=== PATIENT | female | born 1970 ===

== ENCOUNTER 2021-03-28 09:00 | Outpatient (RCR) | payer MEDICAID, SELFPAY | END 2021-03-29 08:00 | disposition home or self-care (01) | LOC: HO.PT 09:00 | PROVIDERS: PCP Pediatrics; Visit Provider Pediatrics | DX: M54.5 Low back pain (principal); M62.830 Muscle spasm of back | CPT/HCPCS: 97110; 97112; 97116; 97140; 97162; 97530 ==

== ENCOUNTER 2023-07-27 11:30 | Outpatient (RCR) | payer OTHER, SELFPAY | END 2023-08-04 10:46 | disposition home or self-care (01) | LOC: HO.OT 11:30 | PROVIDERS: PCP Internal Medicine; Visit Provider Internal Medicine | DX: M25.522 Pain in left elbow (principal); M25.521 Pain in right elbow | CPT/HCPCS: 97110; 97140; 97165 ==

== ENCOUNTER 2023-09-03 02:15 | Emergency (ER) | payer OTHER, SELFPAY ==
[2023-09-03 02:22] VITALS: BP 118/88; BP 128/80; PULSE 80; PULSE 90; RESP 24; TEMP 36.6; O2SAT 96; O2SAT 99; BMI 33.3
[2023-09-03 02:51] LABS: MANUAL DIFF FLAG NO
[2023-09-03 02:52] LABS: Basophils Percent Auto 0.4 % (0-2); Eosinophils Absolute Auto 0.4 X10*3/uL (0.0-0.4); Eosinophils Percent Auto 6.3 % (0-4); Hematocrit 41.9 % (37.0-47.0); Hemoglobin 14.2 g/dl (12.0-16.0); Imm Gran Abs Auto 0.02 X10*3/uL (0.00-0.03); Imm Gran Pct Auto 0.3 % (0.0-0.4); Lymphocytes Percent Auto 28.6 % (20-40); Mean Corpuscular HGB Conc 33.9 g/dl (31.0-35.0); Mean Corpuscular Hemoglobin 29.2 pg (27.0-33.0); Mean Platelet Volume 9.6 fL (9.4-12.3); Monocytes Absolute Auto 0.5 X10*3/uL (0.1-1.2); Monocytes Percent Auto 7.6 % (2-11); Neutrophils Absolute Auto 3.9 x10*3/uL (2.0-8.3); Neutrophils Percent Auto 56.8 % (45-73); Platelet Count 308 X10*3/uL (160-400); Red Blood Count 4.87 X10*6/uL (4.20-5.50); Red Cell Distribution Width 12.8 % (11.0-16.0); White Blood Count 6.8 X10*3/uL (4.8-10.8)
[2023-09-03 03:23] LABS: Alanine Aminotransferase 41 U/L (0-31); Albumin Level 4.4 g/dL (3.5-5.0); Alkaline Phosphatase 126 U/L (39-117); Anion Gap 12 (12-20); Aspartate Amino Transferase 30 U/L (5-31); Bilirubin Total 0.4 mg/dL (0.0-1.0); Blood Urea Nitrogen 14 mg/dL (9-16); Calcium 9.7 mg/dL (8.4-10.2); Carbon Dioxide 27 mmol/L (22-29); Chloride 105 mmol/L (96-108); Creatinine Clr Calc Pharmacy 85.5; Estimated Glomerular Filt Rate > 60; Glucose Random 128 mg/dL (60-115); Lipase 21 U/L (8-78); Potassium 3.6 mmol/L (3.3-5.1); Sodium 140 mmol/L (135-145)
--- NOTE | 2023-09-03 03:33 | PC.NURSE ---
pt resting comfortably with eyes closed, breathing even and unlabored at this time. no apparent distress noted
--- NOTE | 2023-09-03 04:01 | ED.ABDPAIN ---
HPI - Abdominal Pain General Chief Complaint: Abdominal Pain Stated Complaint: abd pain Time Seen by Provider: 09/03/23 02:26 Source: patient Mode of arrival: EMS History of Present Illness HPI narrative: 53-year-old female who arrives via EMS with acute right flank pain that occurred when she returned home and states that she experienced some urinary frequency as well as sharp pain in her posterior right flank which prompted her to get up and pace. Patient denies any history of renal colic or intra-abdominal surgery. She denies any associated fever, chills, nausea, vomiting. Related Data Allergies Allergy/AdvReac Type Severity Reaction Status Date / Time Sulfa (Sulfonamide Allergy Unknown ITCHY Unverified 06/20/20 15:12 Antibiotics) [SULFA (SULFONAMIDE ANTIBIOTICS)] sulfacetamide Allergy Unknown Verified 11/21/19 00:00 Review of Systems Review of Systems Pertinent positives and negatives as stated in HPI PMFSH Past Medical History Source: nursing notes reviewed Social History Social History Alcohol intake: current Alcohol intake frequency: a few times a week Smoked in Last 30 Days: No Use of substances other than those prescribed or required for medical reasons: No Advance Directives: No Advance Directives Information Provided: Yes Patient : No Physical Exam ED Vital Signs: Vital Signs - 24 hr 09/03/23 02:22 Temperature 97.9 F Pulse Rate 80 Respiratory Rate 24 H Blood Pressure 128/80 Pulse Oximetry 96 Oxygen Delivery Method Room Air BMI result Body Mass Index 33.3 VITAL SIGNS: Reviewed. GENERAL: Well developed, well nourished, in no acute distress. HEAD: Normocephalic/atraumatic EYES: PERRLA, EOMI EARS: Ext canals without abnormality NOSE: Nares patent bilateral OROPHARYNX: no oral lesions noted, posterior pharynx clear NECK: Supple, no adenopathy LUNGS: Normal breath sounds. No adventitious sounds or accessory muscle use. SpO2<96> CARDIOVASCULAR: Regular rate and rhythm without noted murmurs ABDOMEN: Soft, non-tender, non-distended with bowel sounds. MUSCULOSKELETAL: No tenderness, deformities, or effusions noted on gross inspection. EXTREMITIES: No cyanosis, clubbing or edema. SKIN: Inspection of the skin reveals no rashes NEUROLOGIC: Alert and oriented x 4. Strength and sensation to light touch were grossly intact x 4. Medical Decision Making Medical Decision Making [facility] Narrative: 53-year-old female with history and clinical presentation, DDX: Renal colic, UTI, lower clinical suspicion for appendicitis/pyelonephritis or SBO. Notably, the time of my examination patient was completely asymptomatic and had been resting comfortably in the gurney. I reviewed all investigations and hematologic indices are grossly within normal limits. Chemistry indices are also grossly within normal limits, there is a mild elevation of glucose, ALT -41 with chronically stable elevation of alkaline phosphatase. Urinalysis demonstrates trace blood. Patient is currently asymptomatic, there are no laboratory derangements, I highly suspect that patient had ureterolithiasis and has subsequently passed the stone. She is otherwise hemodynamically stable and will be discharged home. Differential Diagnosis Differential Diagnoses: The differential diagnosis associated with the presentation includes Please see the discussion above Admission/Observation Consideration of admission/observation: Escalation of care including admission/observation considered Please see the discussion above Lab Data [facility] Lab Attestation statement: I reviewed the patient's lab results. Please see the discussion above 09/03/23 02:45 09/03/23 02:45 Labs: Lab Results 09/03/23 Range/Units 02:45 WBC 6.8 (4.8-10.8) X10*3/uL RBC 4.87 (4.20-5.50) X10*6/uL Hgb 14.2 (12.0-16.0) g/dl Hct 41.9 (37.0-47.0) % MCV 86.0 (80.0-98.0) fL MCH 29.2 (27.0-33.0) pg MCHC 33.9 (31.0-35.0) g/dl RDW 12.8 (11.0-16.0) % Plt Count 308 (160-400) X10*3/uL MPV 9.6 (9.4-12.3) fL Immature Gran % (Auto) 0.3 (0.0-0.4) % Neut % (Auto) 56.8 (45-73) % Lymph % (Auto) 28.6 (20-40) % [place] % (Auto) 7.6 (2-11) % Eos % (Auto) 6.3 H (0-4) % Baso % (Auto) 0.4 (0-2) % Lymph # (Auto) 2.0 (1.2-4.9) X10*3/uL [place] # (Auto) 0.5 (0.1-1.2) X10*3/uL Eos # (Auto) 0.4 (0.0-0.4) X10*3/uL Baso # (Auto) 0.0 (0.0-0.2) X10*3/uL Abs Immat Gran (auto) 0.02 (0.00-0.03) X10*3/uL Absolute Neuts (auto) 3.9 (2.0-8.3) x10*3/uL Absolute Nucleated RBC 0.000 (0.0-0.012) X10*3/uL Nucleated RBC % (auto) 0.0 (0.0-0.2) /100WBC Sodium 140 (135-145) mmol/L Potassium 3.6 (3.3-5.1) mmol/L Chloride 105 (96-108) mmol/L Carbon Dioxide 27 (22-29) mmol/L Anion Gap 12 (12-20) BUN 14 (9-16) mg/dL Creatinine 0.55 (0.5-1.4) mg/dL Estim Creat Clear Calc 85.5 Estimated GFR > 60 Random Glucose 128 H (60-115) mg/dL Calcium 9.7 (8.4-10.2) mg/dL Total Bilirubin 0.4 (0.0-1.0) mg/dL AST 30 (5-31) U/L ALT 41 H (0-31) U/L Alkaline Phosphatase 126 H (39-117) U/L Total Protein 8.0 (6.5-8.0) g/dL Albumin 4.4 (3.5-5.0) g/dL Lipase 21 (8-78) U/L Discharge Plan Discharge Clinical Impression: Flank pain Patient Disposition: Home, Self-Care Instructions: Flank Pain (ED) Additional Instructions: 1. Resume all home medications as prescribed. 2. Drink plenty of water. 3. Follow-up with primary care doctor. Return to the ER for any worsening symptoms. Referrals: Erin Suarez MD [Primary Care Provider] -
[2023-09-03 04:02] LABS: Appearance Urine Clear; Color Urine Yellow; Glucose Urine UA Negative (Negative); Leukocyte Esterase Urine Negative (Negative); Nitrite Urine Negative (Negative); UMIC TRIGGER UACC YES; Urine Blood Trace (Negative); Urine Ketones Negative (Negative); Urine Protein Negative (Neg-Trace)
[2023-09-03 04:05] LABS: Bacteria Urine None Seen (None Seen); Hyaline Casts Urine 0-2 /LPF (0-2); RBC Urine 0-2 /HPF (0-2); Squamous Epithelial Cell Urine 0-2 /HPF (0-2); WBC Urine 0-5 /HPF (0-5)
[2023-09-03 04:14] VITALS: BP 123/71; PULSE 86; RESP 16; O2SAT 95
== END 2023-09-03 04:48 | disposition home or self-care (01) ==
PROVIDERS: Emergency Provider Student in an Organized Health Care Education/Training Program; PCP Internal Medicine
DX: R10.9 Unspecified abdominal pain (principal); Z79.899 Other long term (current) drug therapy
CPT/HCPCS: 36415; 80053; 81001; 83690; 85025; 99283; 99284

== ENCOUNTER 2023-12-21 04:17 | Inpatient (IN) | payer OTHER, SELFPAY ==
[2023-12-21] VITALS (13 sets, daily range): BP systolic 124–169; BP diastolic 60–96; PULSE 61–89; RESP 16–20; TEMP 36–37.1; O2SAT 92–100; BMI 31.6; BMI 35.9
--- NOTE | ~2023-12-21 | FL_ITS ---
EXAMINATION: XR FLUOROSCOPY WITH IMAGES CLINICAL INFORMATION: Cystoscopy, ureteroscopy, retrograde and laser therapy. COMPARISON: CT abdomen and pelvis 12/21/2023. TECHNIQUE: Fluoroscopy Supervised By: Dr. Ari Soliz. Fluoroscopy Time: 20.5 seconds. Cumulative Dose: 7.46 mGy. Images: 3. FINDINGS: 3 images show contrast injected into the right ureter and renal collecting system with placement of a double-J internally dwelling ureteral stent. Please see Dr. Ari Soliz's procedure note for full details. FL/FL guidance in OR IMPRESSION: Fluoroscopy and spot films provided during retrograde pyelogram and stent placement.
--- NOTE | ~2023-12-21 | CT_ITS ---
EXAMINATION: CT ABDOMEN AND PELVIS WITHOUT CONTRAST CLINICAL INFORMATION: Right lower quadrant pain and flank pain. COMPARISON: None available. TECHNIQUE: Multidetector volumetric imaging was performed from the superior aspect of the liver through the pubic symphysis. Sagittal and coronal reformatted images were obtained on the technologist's workstation. This CT examination was performed using dose optimization techniques as appropriate, variously including the following: *Automated exposure control *Adjustment of mA and/or kV according to patient size (this includes techniques or standardized protocols for targeted exams where dose is matched to indication/reason for exam; i.e. extremities or head) *Use of iterative reconstruction technique DLP: 495 mGy-cm FINDINGS: LUNG BASES: There is bibasilar an lingular atelectasis. Heart size is normal. LIVER, GALLBLADDER, AND BILIARY TREE: The liver is normal in size, shape, and attenuation. No focal hepatic lesion or biliary ductal dilatation is present. The gallbladder is unremarkable with no evidence of radiopaque gallstones, gallbladder wall thickening, or obvious pericholecystic inflammatory changes. PANCREAS: Unremarkable. SPLEEN: Unremarkable. ADRENAL GLANDS: Unremarkable. KIDNEYS AND URETERS: There is a 3 mm obstructive right distal ureter radiopaque calculi resulting in mild to moderate hydroureteronephrosis. The right kidney is enlarged with moderate perinephric stranding. No radiopaque calculi seen in either kidneys. There is no radiopaque calculi left kidney. . There is moderate right perinephric stranding. BLADDER: Unremarkable. GASTROINTESTINAL TRACT: There is scattered stool and gas seen throughout the colon without significant distention. Is nonspecific intramural fat in the descending colon and terminal ileum but no pericolic fat stranding, a nonspecific finding. No mesenteric fat stranding, free fluid or free air seen. Appendix is not visualized. ABDOMINAL WALL: A small umbilical hernia containing fat is noted. LYMPH NODES: Normal. VASCULAR: Unremarkable. PELVIC VISCERA: The uterus is anteverted with of bulky fundus. No adnexal mass or free fluid seen. OSSEOUS STRUCTURES: There are degenerative disc changes throughout lower dorsal and lumbar spine. There is a left hip prosthesis and a chronic deformity of the right hip joint which appears fused. CT/CT abdomen pelvis wo IV con IMPRESSION: 1. 3 mm obstructive right distal ureter radiopaque calculi with mild to moderate hydroureteronephrosis and perinephric stranding. 2. There is no radiopaque calculi in the left kidney. 3. Mild constipation. Nonspecific intramural fat in the descending colon and terminal ileum but no pericolic fat stranding. Appendix is not seen. Fleischner guidelines were followed.
--- NOTE | ~2023-12-21 | CT_ITS ---
EXAMINATION: CT CHEST WITHOUT CONTRAST CLINICAL INFORMATION: Abnormal chest x-ray COMPARISON: Chest radiograph from 12/22/2023, CT abdomen from 12/21/2023 TECHNIQUE: Multidetector volumetric CT imaging of the chest was done. Axial MIP volume rendering provided. Sagittal and coronal reformatted images were obtained. This CT examination was performed using dose optimization techniques as appropriate, variously including the following: *Automated exposure control *Adjustment of mA and/or kV according to patient size (this includes techniques or standardized protocols for targeted exams where dose is matched to indication/reason for exam; i.e. extremities or head) *Use of iterative reconstruction technique DLP: 115 mGy-cm FINDINGS: LUNGS/PLEURA: Small bilateral pleural effusions with subjacent atelectasis. Interlobular septal thickening with mosaic attenuation suggesting pulmonary edema though atypical infectious/inflammatory etiology not excluded. Biapical pleural parenchymal scarring. Mild thickening along the right minor fissure. 3 mm nodular focus posterior lateral aspect of the right middle lobe (series 6, image 291). MEDIASTINUM: Heart is borderline enlarged. No pericardial effusion. No coronary artery calcifications. Previously identified density in the right paratracheal region likely corresponds to summation artifact from mediastinal vasculature vasculature. Aorta is nonaneurysmal. Main pulmonary artery is not enlarged. A few mildly prominent though nonenlarged mediastinal lymph nodes are visualized. Visualized portions of the thyroid are unremarkable. AXILLA: No lymphadenopathy. UPPER ABDOMEN: Unremarkable. OSSEOUS STRUCTURES: Multilevel degenerative changes of the thoracolumbar spine. CT/CT chest wo IV con IMPRESSION: 1. Small bilateral pleural effusions with subjacent atelectasis. 2. Interlobular septal thickening with mosaic attenuation suggesting pulmonary edema though atypical infectious/inflammatory etiology not excluded. 3. 3 mm nodular focus posterior lateral aspect of the right middle lobe. Follow-up as per Fleischner criteria. 4. Previously identified density in the right paratracheal region likely corresponds to summation artifact from mediastinal vasculature. Various management parameters for solitary pulmonary nodules are in the literature. According to the Fleischner Society, recommendations for pulmonary nodules are as follows: According to the UPDATED 2017 Fleischner Society recommendations, the advised follow-up imaging for solid nodules < 6 mm is: LOW RISK PATIENT: No routine follow-up.
--- NOTE | ~2023-12-21 | XR_ITS ---
EXAMINATION: XR CHEST CLINICAL INFORMATION: Shortness of breath COMPARISON: None available. TECHNIQUE: Frontal view of the chest was obtained. FINDINGS: Reticular and interstitial prominence. Bibasilar atelectasis. Radiodensity along the right distal trachea with fissural thickening nonspecific but potentially representing a loculated pleural effusion versus focus of infectious/inflammatory etiology. Prominence of pulmonary vasculature. No pneumothorax. Trachea is midline. Cardiac mediastinal silhouette is not enlarged. No large pleural effusion. Levocurvature of the mid to lower thoracic spine with multilevel degenerative changes. Soft tissues are unremarkable. XR/XR chest 1V IMPRESSION: 1. Reticular and interstitial prominence. 2. Bibasilar atelectasis. 3. Radiodensity along the right distal trachea with fissural thickening nonspecific but potentially representing a loculated pleural effusion versus focus of infectious/inflammatory etiology. 4. Prominence of pulmonary vasculature.
[2023-12-21 04:49] LABS: Basophils Percent Auto 0.3 % (0-2); Eosinophils Absolute Auto 0.2 X10*3/uL (0.0-0.4); Eosinophils Percent Auto 1.4 % (0-4); Hemoglobin 13.6 g/dl (12.0-16.0); Imm Gran Abs Auto 0.03 X10*3/uL (0.00-0.03); Imm Gran Pct Auto 0.3 % (0.0-0.4); Lymphocytes Absolute Auto 1.3 X10*3/uL (1.2-4.9); Lymphocytes Percent Auto 10.9 % (20-40); MANUAL DIFF FLAG NO; Mean Corpuscular Hemoglobin 28.7 pg (27.0-33.0); Mean Corpuscular Volume 84.4 fL (80.0-98.0); Mean Platelet Volume 9.2 fL (9.4-12.3); Monocytes Absolute Auto 0.6 X10*3/uL (0.1-1.2); Monocytes Percent Auto 5.4 % (2-11); Neutrophils Absolute Auto 9.7 x10*3/uL (2.0-8.3); Neutrophils Percent Auto 81.7 % (45-73); Platelet Count 277 X10*3/uL (160-400); Red Blood Count 4.74 X10*6/uL (4.20-5.50); Red Cell Distribution Width 12.4 % (11.0-16.0); White Blood Count 11.8 X10*3/uL (4.8-10.8)
[2023-12-21 05:06] LABS: Alanine Aminotransferase 26 U/L (0-31); Albumin Level 4.3 g/dL (3.5-5.0); Alkaline Phosphatase 118 U/L (39-117); Anion Gap 14 (12-20); Aspartate Amino Transferase 18 U/L (5-31); Bilirubin Direct 0.2 mg/dL (0.0-0.5); Bilirubin Total 0.7 mg/dL (0.0-1.0); Blood Urea Nitrogen 20 mg/dL (9-16); Calcium 9.6 mg/dL (8.4-10.2); Carbon Dioxide 25 mmol/L (22-29); Chloride 106 mmol/L (96-108); Creatinine Clr Calc Pharmacy 73.9; Estimated Glomerular Filt Rate > 60; Glucose Random 137 mg/dL (60-115); Lipase 15 U/L (8-78); Potassium 3.8 mmol/L (3.3-5.1); Sodium 141 mmol/L (135-145); Total Protein 7.5 g/dL (6.5-8.0)
[2023-12-21 05:17] LABS: Appearance Urine Clear; Color Urine Yellow; Glucose Urine UA Negative (Negative); Leukocyte Esterase Urine Trace (Negative); Nitrite Urine Negative (Negative); Specific Gravity - Urine 1.025 (1.005-1.025); UMIC TRIGGER UACC YES; Urine Blood Large (3+) (Negative); Urine Ketones Trace mg/dL (Negative); Urine Protein Negative (Neg-Trace)
[2023-12-21 05:22] LABS: Bacteria Urine None Seen (None Seen); Hyaline Casts Urine 0-2 /LPF (0-2); RBC Urine >20 /HPF (0-2); UACC Culture Trigger YES
--- NOTE | 2023-12-21 06:46 | ED.ABDPAIN ---
HPI - Abdominal Pain General Chief Complaint: Abdominal Pain Stated Complaint: ABDOMINAL PAIN Time Seen by Provider: 12/21/23 06:44 Source: patient and EMS Mode of arrival: EMS Limitations: no limitations History of Present Illness HPI narrative: This is a 53-year-old female presenting by ambulance with worsening right-sided flank pain with radiation to right lower quadrant, this pain started yesterday night around 23:30. Has not been improving instead has been worsening. Patient has never had pain like this before. She reports this has happened to her before, they told her that this could have been a kidney stone however unclear.. Reports that her urinary habits have been slightly different, she has been peeing less than usual and peeing small amounts when she is able to be. Denies chance of . Reports associated nausea & vomiting. Patient denies chest pain, shortness breath, headache, vision changes, dizziness, weakness, fevers, chills, changes in bowel habits Related Data Allergies Allergy/AdvReac Type Severity Reaction Status Date / Time Sulfa (Sulfonamide Allergy Unknown ITCHY Verified 12/21/23 04:34 Antibiotics) [SULFA (SULFONAMIDE ANTIBIOTICS)] sulfacetamide Allergy Unknown Unknown Verified 12/21/23 04:34 Review of Systems Review of Systems Yes all other systems are reviewed and are negative [facility] Past Medical History Attestation statement: The following information was validated with the patient. Source: old records reviewed and nursing notes reviewed Social History Social History Alcohol intake: current Alcohol intake frequency: a few times a week Advance Directives: Yes Advance Directives Information Provided: Yes Advance Directives on File: No Physical Exam ED Vital Signs: Vital Signs - 24 hr 12/21/23 04:30 12/21/23 06:00 12/21/23 08:19 Temperature 98.3 F 98.3 F 98.7 F Pulse Rate 89 78 88 Respiratory Rate 17 16 20 Blood Pressure 162/73 H 145/63 H 130/63 Pulse Oximetry 98 98 95 Oxygen Delivery Method Room Air Room Air Room Air 12/21/23 10:09 Temperature 98.3 F Pulse Rate 81 Respiratory Rate 20 Blood Pressure 131/71 Pulse Oximetry 96 Oxygen Delivery Method Room Air BMI result Body Mass Index 31.6 vss Appearance: Alert.? Oriented X3.? Patient appears uncomfortable Head: Normocephalic, atraumatic, no step-offs or deformities Eyes: Pupils equal, round and reactive to light.? Neck: Normal inspection.? Neck supple.? CVS: Normal heart rate and rhythm.? Pulses normal.? Respiratory: No respiratory distress.? Breath sounds normal.? Abdomen: Soft and mild discomfort to right lower quadrant..? Skin: Skin warm and dry.? Normal skin color.? Normal skin turgor.? Extremities: No lower extremity edema.? No calf ttp. 5/5 strength to bilateral upper and lower extremities Back: Mild discomfort to right flank region. Neuro: Oriented X 3.? No motor deficit.? No sensory deficit. CN 2-12 intact Course Reevaluation(s) Reevaluation #1: CBC with leukocytosis 11.8 and slight left shift, chemistry unremarkable. Normal lipase. UA with blood. No bacteria. CT scan showing a 3 mm obstructive stone in the right distal ureter with associated hydroureter nephrosis and perinephric stranding. Mild constipation also noted. Patient much more comfortable periods fluids given. Reached out to urology. Ceftriaxone ordered. At this time infection suspected however not sepsis Time: 09:51 Reevaluation #2: Discuss this case with Urology that is requesting for me to find out last time patient 8, patient last ate sometime last night. She still very uncomfortable. Morphine ordered Time: 10:22 Reevaluation #3: Patient will go to the OR for stent Attempted to call patients son a few times no answer left VM X1. Dr. Lei in room now Time: 11:15 Additional Reevaluation(s): Patient will be admitted to the hospitalist service per request of Urology. Patient will get a stent. Antibiotics ordered and hanging. Normal lactic acid. Will continue to monitor. Medical Decision Making Medical Decision Making [facility] Narrative: 1846 53 year old female presents w/ R flank pain w/ radiation to RLQ started around 1130 pm last night PE mild rlq ttp and r flank discomfort patient appears uncomfortable Hx and pe concerning for obstructing uropathy versus kidney stone versus appendicitis versus musculoskeletal pain. Unlikely cholecystitis, cholangitis, pancreatitis, obstruction, diverticulitis, acute abdomen. Unlikely ovarian torsion, ruptured ovarian cyst, ectopic . Plan at this time labs, urine, imaging Differential Diagnosis Differential Diagnoses: The differential diagnosis associated with the presentation includes Hx and pe concerning for obstructing uropathy versus kidney stone versus appendicitis versus musculoskeletal pain. Unlikely cholecystitis, cholangitis, pancreatitis, obstruction, diverticulitis, acute abdomen. Unlikely ovarian torsion, ruptured ovarian cyst, ectopic . Admission/Observation Consideration of admission/observation: Escalation of care including admission/observation considered Possible Consult Healthcare Provider Management of the patient was discussed with: Center Receptionist (Urology ) Lab Data MDM Lab Attestation statement: I reviewed the patient's lab results. 12/21/23 04:45 12/21/23 04:45 Labs: Lab Results 12/21/23 12/21/23 12/21/23 Range/Units 04:45 05:11 10:30 WBC 11.8 H (4.8-10.8) X10*3/uL RBC 4.74 (4.20-5.50) X10*6/uL Hgb 13.6 (12.0-16.0) g/dl Hct 40.0 (37.0-47.0) % MCV 84.4 (80.0-98.0) fL MCH 28.7 (27.0-33.0) pg MCHC 34.0 (31.0-35.0) g/dl RDW 12.4 (11.0-16.0) % Plt Count 277 (160-400) X10*3/uL MPV 9.2 L (9.4-12.3) fL Immature Gran % (Auto) 0.3 (0.0-0.4) % Neut % (Auto) 81.7 H (45-73) % Lymph % (Auto) 10.9 L (20-40) % [place] % (Auto) 5.4 (2-11) % Eos % (Auto) 1.4 (0-4) % Baso % (Auto) 0.3 (0-2) % Lymph # (Auto) 1.3 (1.2-4.9) X10*3/uL [place] # (Auto) 0.6 (0.1-1.2) X10*3/uL Eos # (Auto) 0.2 (0.0-0.4) X10*3/uL Baso # (Auto) 0.0 (0.0-0.2) X10*3/uL Abs Immat Gran (auto) 0.03 (0.00-0.03) X10*3/uL Absolute Neuts (auto) 9.7 H (2.0-8.3) x10*3/uL Absolute Nucleated RBC 0.000 (0.0-0.012) X10*3/uL Nucleated RBC % (auto) 0.0 (0.0-0.2) /100WBC Sodium 141 (135-145) mmol/L Potassium 3.8 (3.3-5.1) mmol/L Chloride 106 (96-108) mmol/L Carbon Dioxide 25 (22-29) mmol/L Anion Gap 14 (12-20) BUN 20 H (9-16) mg/dL Creatinine 0.65 (0.5-1.4) mg/dL Estim Creat Clear Calc 73.9 Estimated GFR > 60 Random Glucose 137 H (60-115) mg/dL Lactic Acid 0.9 (0.5-2.0) mmol/L Calcium 9.6 (8.4-10.2) mg/dL Total Bilirubin 0.7 (0.0-1.0) mg/dL Direct Bilirubin 0.2 (0.0-0.5) mg/dL AST 18 (5-31) U/L ALT 26 (0-31) U/L Alkaline Phosphatase 118 H (39-117) U/L Total Protein 7.5 (6.5-8.0) g/dL Albumin 4.3 (3.5-5.0) g/dL Lipase 15 (8-78) U/L Urine Color Yellow Urine Appearance Clear Urine pH 6.0 (5.0-9.0) Ur Specific [place] 1.025 (1.005-1.025) Urine Protein Negative (Neg-Trace) mg/dL Urine Glucose (UA) Negative (Negative) mg/dL Urine Ketones Trace (Negative) mg/dL Urine Blood Large (3+) H (Negative) Urine Nitrite Negative (Negative) Ur Leukocyte Esterase Trace H (Negative) Urine RBC >20 H (0-2) /HPF Urine WBC 6-10 H (0-5) /HPF Ur Squamous Epith Cells 3-5 (0-2) /HPF Urine Bacteria None Seen (None Seen) Hyaline Casts 0-2 (0-2) /LPF Independent Interpretation I performed an independent interpretation of an: CT Scan Radiology Impression Discussion of test interpretation with radiology: I have reviewed the radiologist's reading. (CT/CT abdomen pelvis wo IV con IMPRESSION: 1. 3 mm obstructive right distal ureter radiopaque calculi with mild to moderate hydroureteronephrosis and perinephric stranding. 2. There is no radiopaque calculi in the left kidney. 3. Mild constipation. Nonspecific intramural fat in the descending col) External Record Review External record reviewed: Inpatient record, Office record, Outpatient record, Prior outpatient labs, Prior outpatient radiology, Primary care record and Outside ED record Prescription Management I considered prescription management with: Antibiotic (1G ceftriaxone given here ) Chronic Conditions Patient?s care impacted by: Other (obesity ) Medications Administered Discontinued Medications Generic Name Dose Route Start Last Admin Trade Name Freq PRN Reason Stop Dose Admin Sodium Chloride 1,000 mls @ 999 mls/hr 12/21/23 07:00 12/21/23 10:13 Ns IV 12/21/23 08:00 Infused .Q1H1M ERENDIRA Infusion Sodium Chloride 1,000 mls @ 999 mls/hr 12/21/23 07:00 12/21/23 10:13 Ns IV 12/21/23 08:00 Infused .Q1H1M ERENDIRA Infusion Sodium Chloride 1,000 mls @ 999 mls/hr 12/21/23 10:00 12/21/23 10:42 Ns IV 12/21/23 11:00 999 mls/hr .Q1H1M ERENDIRA Administration Ceftriaxone Sodium 1 gm/ 50 mls @ 100 mls/hr 12/21/23 09:51 12/21/23 11:26 Sodium Chloride IV 12/21/23 10:20 Infused ONCE ONE Infusion Ketorolac Tromethamine 30 mg 12/21/23 06:48 12/21/23 07:37 Ketorolac Tromethamine 15 Mg/Ml Vial IVPUSH 12/21/23 06:49 30 mg ONCE ONE Administration Morphine Sulfate 4 mg 12/21/23 10:22 12/21/23 10:43 Morphine Sulfate 4 Mg/Ml Cartridge IVPUSH 12/21/23 10:23 4 mg ONCE ONE Administration Protocol Critical Care Time Critical Care Time Critical Care Time: Yes Total Critical Care Time: 35 Attestation: I attest to this time spent taking care of the patient, obtaining history, physical, reviewing labs, imaging, speaking to my attending, speaking to specialist. Discharge Plan Discharge Clinical Impression: Obstructed, uropathy, Urinary hesitancy, Kidney stone, Nausea & vomiting, Hydronephrosis Patient Disposition: Admitted As Inpatient
[2023-12-21] MEDS: 0.9 % Sodium Chloride 1,000 ML 999 ML IV ×3 (07:35→10:42)
[2023-12-21] MEDS: Ketorolac Tromethamine 15 MG/ML VIAL 30 MG IVPUSH (07:37)
[2023-12-21] MEDS: cefTRIAXone sodium 1 GM in 0.9 % Sodium Chloride 50 ML IV (10:42)
[2023-12-21] MEDS: Morphine Sulfate 4 MG/ML CARTRIDGE IVPUSH (10:43)
[2023-12-21 10:50] LABS: Lactic Acid 0.9 mmol/L (0.5-2.0)
--- NOTE | 2023-12-21 11:29 | PM.UROCN ---
History of Present Illness Consult details Consult date: 12/21/23 Narrative: 53-year-old female presenting with worsening right-sided flank pain with radiation to right lower quadrant, which started one day ago. Reports that her urinary habits have been slightly different, reduced urination. Reports associated nausea & vomiting. Patient denies chest pain, shortness breath, headache, vision changes, dizziness, weakness, fevers, chills, changes in bowel habits Review of Systems Review of Systems: Yes all other systems are reviewed and are negative Constitutional: Constitutional: Reports no additional constitutional complaints Eyes: Eyes: Reports no additional eye complaints ENT: Reports system reviewed and no additional complaints, except as documented Cardiovascular: Cardiovascular: Denies dyspnea Respiratory: Respiratory: Denies cough and Denies dyspnea Gastrointestinal: Gastrointestinal: Reports no additional gastrointestinal complaints Genitourinary: Genitourinary: Reports no additional female genitourinary complaints Musculoskeletal: Musculoskeletal: Reports no additional musculoskeletal complaints Integumentary/Breasts: Skin/Breast: Denies rash and Denies unusual bruising Neurologic: Reports system reviewed and no additional complaints, except as documented Psychiatric: Psychiatric: Reports no additional psychiatric complaints Endocrine: Endocrine: Reports no additional endocrine complaints Hematologic/Lymphatic: Hematologic/Lymphatic: Reports no additional hematologic/lymphatic complaints Allergic/Immunologic: Allergic/Immunologic: Reports no additional allergic/immunologic complaints [facility] Social History Social History Alcohol intake: current Alcohol intake frequency: a few times a week Advance Directives: Yes Advance Directives Information Provided: Yes Advance Directives on File: No Meds Allergies Allergy/AdvReac Type Severity Reaction Status Date / Time Sulfa (Sulfonamide Allergy Unknown ITCHY Verified 12/21/23 04:34 Antibiotics) [SULFA (SULFONAMIDE ANTIBIOTICS)] sulfacetamide Allergy Unknown Unknown Verified 12/21/23 04:34 Active Medications: Current Medications Sodium Chloride (Ns) 1,000 mls @ 999 mls/hr IV .Q1H1M ERENDIRA Stop: 12/21/23 12:00 Gentamicin Sulfate 160 mg/ (Sodium Chloride) 104 mls @ 100 mls/hr IV ONCE ONE Stop: 12/21/23 12:18 Physical Exam Vital Signs: Vital Signs: Last Vital Signs Temp 98.3 F 12/21/23 10:09 Pulse 81 12/21/23 10:09 Resp 20 12/21/23 10:09 BP 131/71 12/21/23 10:09 Pulse Ox 96 12/21/23 10:09 O2 Del Method Room Air 12/21/23 10:09 BMI result Body Mass Index 31.6 Const: General: cooperative, healthy appearing and no acute distress Orientation/consciousness: patient oriented x3 HEENT: Head: Yes normal to inspection, Yes normocephalic and Yes atraumatic Eyes: Conjunctivae: conjunctivae normal Neck: Neck: Yes normal visual inspection and Yes trachea midline Chest: Chest palpation & inspection: normal inspection of the chest Resp: Effort & Inspection: normal respiratory effort Cardio: Rate: regular rate GI: Inspection: Yes normal to inspection Palpation (GI): Soft to palpation : General: Yes CVA tenderness (right) Back/Spine/Pelvis: Back: CVA tenderness (right) Skin: General skin exam: no rashes or lesions noted Neuro: General: patient oriented x3 Extrem: General: No edema Psych: Appearance: grossly normal Results Labs 12/21/23 04:45 12/21/23 04:45 Labs: Abnormal lab results 12/21/23 12/21/23 Range/Units 04:45 05:11 WBC 11.8 H (4.8-10.8) X10*3/uL MPV 9.2 L (9.4-12.3) fL Neut % (Auto) 81.7 H (45-73) % Lymph % (Auto) 10.9 L (20-40) % Absolute Neuts (auto) 9.7 H (2.0-8.3) x10*3/uL BUN 20 H (9-16) mg/dL Random Glucose 137 H (60-115) mg/dL Alkaline Phosphatase 118 H (39-117) U/L Urine Blood Large (3+) H (Negative) Ur Leukocyte Esterase Trace H (Negative) Urine RBC >20 H (0-2) /HPF Urine WBC 6-10 H (0-5) /HPF Short CBC 12/21/23 Range/Units 04:45 WBC 11.8 H (4.8-10.8) X10*3/uL Hgb 13.6 (12.0-16.0) g/dl Hct 40.0 (37.0-47.0) % Plt Count 277 (160-400) X10*3/uL BMP 12/21/23 04:45 Sodium 141 Potassium 3.8 Chloride 106 Carbon Dioxide 25 BUN 20 H Creatinine 0.65 Calcium 9.6 Liver Function 12/21/23 Range/Units 04:45 Total Bilirubin 0.7 (0.0-1.0) mg/dL Direct Bilirubin 0.2 (0.0-0.5) mg/dL AST 18 (5-31) U/L ALT 26 (0-31) U/L Alkaline Phosphatase 118 H (39-117) U/L Albumin 4.3 (3.5-5.0) g/dL Urine 12/21/23 Range/Units 05:11 Urine Color Yellow Urine Appearance Clear Urine pH 6.0 (5.0-9.0) Ur Specific [place] 1.025 (1.005-1.025) Urine Protein Negative (Neg-Trace) mg/dL Urine Glucose (UA) Negative (Negative) mg/dL All other labs normal. Imaging Abdomen CT scan report/results: report reviewed and image reviewed CT scan - pelvis: report reviewed and image reviewed Additional studies: Date of Service: 12/21/23 EXAMINATION: CT ABDOMEN AND PELVIS WITHOUT CONTRAST CLINICAL INFORMATION: Right lower quadrant pain and flank pain. COMPARISON: None available. TECHNIQUE: Multidetector volumetric imaging was performed from the superior aspect of the liver through the pubic symphysis. Sagittal and coronal reformatted images were obtained on the technologist's workstation. This CT examination was performed using dose optimization techniques as appropriate, variously including the following: *Automated exposure control *Adjustment of mA and/or kV according to patient size (this includes techniques or standardized protocols for targeted exams where dose is matched to indication/reason for exam; i.e. extremities or head) *Use of iterative reconstruction technique DLP: 495 mGy-cm FINDINGS: LUNG BASES: There is bibasilar an lingular atelectasis. Heart size is normal. LIVER, GALLBLADDER, AND BILIARY TREE: The liver is normal in size, shape, and attenuation. No focal hepatic lesion or biliary ductal dilatation is present. The gallbladder is unremarkable with no evidence of radiopaque gallstones, gallbladder wall thickening, or obvious pericholecystic inflammatory changes. PANCREAS: Unremarkable. SPLEEN: Unremarkable. ADRENAL GLANDS: Unremarkable. KIDNEYS AND URETERS: There is a 3 mm obstructive right distal ureter radiopaque calculi resulting in mild to moderate hydroureteronephrosis. The right kidney is enlarged with moderate perinephric stranding. No radiopaque calculi seen in either kidneys. There is no radiopaque calculi left kidney. . There is moderate right perinephric stranding. BLADDER: Unremarkable. GASTROINTESTINAL TRACT: There is scattered stool and gas seen throughout the colon without significant distention. Is nonspecific intramural fat in the descending colon and terminal ileum but no pericolic fat stranding, a nonspecific finding. No mesenteric fat stranding, free fluid or free air seen. Appendix is not visualized. ABDOMINAL WALL: A small umbilical hernia containing fat is noted. LYMPH NODES: Normal. VASCULAR: Unremarkable. PELVIC VISCERA: The uterus is anteverted with of bulky fundus. No adnexal mass or free fluid seen. OSSEOUS STRUCTURES: There are degenerative disc changes throughout lower dorsal and lumbar spine. There is a left hip prosthesis and a chronic deformity of the right hip joint which appears fused. IMPRESSION: 1. 3 mm obstructive right distal ureter radiopaque calculi with mild to moderate hydroureteronephrosis and perinephric stranding. 2. There is no radiopaque calculi in the left kidney. 3. Mild constipation. Nonspecific intramural fat in the descending colon and terminal ileum but no pericolic fat stranding. Appendix is not seen. Assessment and Plan (1) Hydronephrosis: Status: Acute (2) Ureteral stone: Status: Acute (3) UTI (urinary tract infection): Status: Acute Plan Cystoscopy, right ureteral stent, retrograde, possible ureteroscopy, laser stone. Procedures Date of Service Date of Service: 12/21/23
--- NOTE | 2023-12-21 12:56 | P.CONAN_ITS ---
HPI - Anesthesia Eval Consult details Narrative: for cysto stent PMFSH Active Problems Active Problems: All Active Problems (Updated 12/21/23 @ 12:54 by Pita Salcido RN) Hydronephrosis (Acute) UTI (urinary tract infection) (Acute) Ureteral stone (Acute) Hydronephrosis (Acute) Nausea & vomiting (Acute) Kidney stone (Acute) Urinary hesitancy (Acute) Obstructed, uropathy (Acute) Past Medical History Medical History Menopause Family History Family history of problems with anesthesia: No Surgical History Surgical History History of total bilateral knee replacement Hx of section Hx of colonoscopy History of total left hip replacement History of Problems with Anesthesia: No Social History Social History Alcohol intake: current Alcohol intake frequency: a few times a week Patient Tobacco Use Status: Never used Tobacco Smoked in Last 30 Days: No Use of substances other than those prescribed or required for medical reasons: No Are you DNR?: No Advance Directives: Yes Advance Directives Information Provided: No Advance Directives on File: No Advance Directives Date on File: 12/21/23 Nutrition Risks: No Nutritional Risk Meds Allergies Allergy/AdvReac Type Severity Reaction Status Date / Time Sulfa (Sulfonamide Allergy Unknown ITCHY Verified 12/21/23 12:46 Antibiotics) [SULFA (SULFONAMIDE ANTIBIOTICS)] sulfacetamide Allergy Unknown Unknown Verified 12/21/23 12:46 Active Medications: Current Medications Gentamicin Sulfate 160 mg/ (Sodium Chloride) 104 mls @ 100 mls/hr IV ONCE ONE Stop: 12/21/23 13:02 Home Medications Medication Instructions Recorded Confirmed Last Taken Type acetaminophen 650 mg 1,300 mg PO Q12H PRN Pain (Scale 12/21/23 12/21/23 Unknown History tablet,extended release Score 1-3) cholecalciferol (vitamin D3) 50 50 mcg PO DAILY 12/21/23 12/21/23 Unknown History mcg (2,000 unit) tablet (Vitamin D3) meloxicam 15 mg tablet 15 mg PO DAILY PRN Moderate Pain 03/19/24 03/19/24 Unknown History (Scale Score 5-6) Exam Height,Weight and Vital Signs: Height 4 ft 8 in Weight 63.9 kg Last Vital Signs Temp 98.4 F 12/21/23 12:11 Pulse 84 12/21/23 12:11 Resp 20 12/21/23 12:11 BP 135/77 12/21/23 12:11 Pulse Ox 96 12/21/23 12:11 O2 Del Method Room Air 12/21/23 12:11 Pertinent Lab Results Pertinent Lab Results: Laboratory Tests 12/21/23 12/21/23 12/21/23 04:45 05:11 10:30 WBC 11.8 H RBC 4.74 Hgb 13.6 Hct 40.0 MCV 84.4 MCH 28.7 MCHC 34.0 RDW 12.4 Plt Count 277 MPV 9.2 L Immature Gran % (Auto) 0.3 Neut % (Auto) 81.7 H Lymph % (Auto) 10.9 L [place] % (Auto) 5.4 Eos % (Auto) 1.4 Baso % (Auto) 0.3 Lymph # (Auto) 1.3 [place] # (Auto) 0.6 Eos # (Auto) 0.2 Baso # (Auto) 0.0 Abs Immat Gran (auto) 0.03 Absolute Neuts (auto) 9.7 H Absolute Nucleated RBC 0.000 Nucleated RBC % (auto) 0.0 Sodium 141 Potassium 3.8 Chloride 106 Carbon Dioxide 25 Anion Gap 14 BUN 20 H Creatinine 0.65 Estim Creat Clear Calc 73.9 Estimated GFR > 60 Random Glucose 137 H Lactic Acid 0.9 Calcium 9.6 Total Bilirubin 0.7 Direct Bilirubin 0.2 AST 18 ALT 26 Alkaline Phosphatase 118 H Total Protein 7.5 Albumin 4.3 Lipase 15 Urine Color Yellow Urine Appearance Clear Urine pH 6.0 Ur Specific [place] 1.025 Urine Protein Negative Urine Glucose (UA) Negative Urine Ketones Trace Urine Blood Large (3+) H Urine Nitrite Negative Ur Leukocyte Esterase Trace H Urine RBC >20 H Urine WBC 6-10 H Ur Squamous Epith Cells 3-5 Urine Bacteria None Seen Hyaline Casts 0-2 Airway Mallampati Class: II TM Dist: >3cm Neck ROM: Full Heart: rrr Lungs: cta Assessment and Plan Assessment Anesthesia Assessment: Anesthesia Plan Discussed and Chart Reviewed Final Anesthetic Review Family History of Problems with Anesthesia: No History of Problems with Anesthesia: No NPO: Yes ASA Class: III Final Preanesthetic Review: No Changes in Pt Med Stat, Meds/Allgs Chart Reviewed, Consent Obtained/Reviewed and Anes Risks/Benef Reviewed Patient Risk: Low Procedure Risk: Low Anesthetic Plan Anesthetic Plan: GA Disposition: Standard PACU
--- NOTE | 2023-12-21 12:59 | PC.NURSE ---
Patient IV was inserted in ER.
[2023-12-21] MEDS: Acetaminophen 1,000 MG/100 ML PIGGYBACK 400 MG IV (13:48)
--- NOTE | 2023-12-21 13:49 | PM.IMHP ---
History of Present Illness Date of Service: 12/21/23 Chief Complaint: Right flank pain 53-year-old female presenting by ambulance with worsening right-sided flank pain with radiation to right lower quadrant, this pain started yesterday night around 23:30. Has not been improving instead has been worsening. Patient has never had pain like this before. She reports this has happened to her before, they told her that this could have been a kidney stone however unclear.. Reports that her urinary habits have been slightly different, she has been peeing less than usual and peeing small amounts when she is able to be. Denies chance of . Reports associated nausea & vomiting. Patient denies chest pain, shortness breath, headache, vision changes, dizziness, weakness, fevers, chills, changes in bowel habits. CT abdomen pelvis in ER demonstrated a 3 mm obstructive right distal ureter radiopaque calculi with mild to moderate hydronephrosis and perinephric stranding. She was seen in consultation by Urology; stone removal with stent scheduled later today Review of Systems Review of Systems: Denies chest pain Denies shortness of breath Denies nausea vomiting diarrhea Denies fever chills PMFSH Medical History Menopause Surgical History History of total bilateral knee replacement Hx of section Hx of colonoscopy History of total left hip replacement Social History Alcohol intake: current Alcohol intake frequency: a few times a week Patient Tobacco Use Status: Never used Tobacco Smoked in Last 30 Days: No Use of substances other than those prescribed or required for medical reasons: No Are you DNR?: No Advance Directives: Yes Advance Directives Information Provided: No Advance Directives on File: No Advance Directives Date on File: 12/21/23 Nutrition Risks: No Nutritional Risk Meds Allergies Allergy/AdvReac Type Severity Reaction Status Date / Time Sulfa (Sulfonamide Allergy Unknown ITCHY Verified 12/21/23 12:46 Antibiotics) [SULFA (SULFONAMIDE ANTIBIOTICS)] sulfacetamide Allergy Unknown Unknown Verified 12/21/23 12:46 Active Medications: Current Medications Acetaminophen (Acetaminophen 325 Mg Tablet) 650 mg PO Q6H PRN PRN Reason: Pain, Mild (Pain Scale 1-3) Acetaminophen (Ofirmev) 1,000 mg in 100 mls @ 400 mls/hr IV PREOP ONE Stop: 12/21/23 13:54 Last Admin: 12/21/23 13:48 Dose: 400 mls/hr Ceftriaxone Sodium 1 gm/ (Sodium Chloride) 50 mls @ 100 mls/hr IV Q24H ERENDIRA Ondansetron HCl (Ondansetron Hcl 4 Mg/2 Ml Vial) 4 mg IVPUSH Q8H PRN PRN Reason: Nausea and Vomiting Oxycodone HCl (Oxycodone Hcl Immed Release 5 Mg Tablet) 5 mg PO Q4H PRN PRN Reason: Pain, Severe (Pain Scale 7-10) Sodium Chloride (0.9 % Sodium Chloride Flush 3 Ml Syringe) 3 ml IVFLUSH QSHIFT COUNT INCLUDES THE [facility] Vitamin D (Cholecalciferol (Vitamin D3) 25 Mcg Tablet) 50 mcg PO DAILY COUNT INCLUDES THE [facility] Home Medications Medication Instructions Recorded Confirmed Last Taken Type acetaminophen 650 mg 1,300 mg PO Q12H PRN Pain (Scale 12/21/23 12/21/23 Unknown History tablet,extended release Score 1-3) cholecalciferol (vitamin D3) 50 50 mcg PO DAILY 12/21/23 12/21/23 Unknown History mcg (2,000 unit) tablet (Vitamin D3) meloxicam 15 mg tablet 15 mg PO DAILY PRN Moderate Pain 12/21/23 12/21/23 Unknown History (Scale Score 5-6) Physical Exam Vital Signs and Narrative: Vital Signs: Last Vital Signs Temp 98.4 F 12/21/23 12:57 Pulse 73 12/21/23 12:57 Resp 18 12/21/23 12:57 BP 139/70 12/21/23 12:57 Pulse Ox 96 12/21/23 12:57 O2 Del Method Room Air 12/21/23 12:57 BMI result Body Mass Index 31.6 Const: Other: Awake alert no acute distress Resp: Other: Clear to auscultation bilaterally no rales rhonchi or wheezes Cardio: Other: No S4; positive S1-S2; no S3 murmurs rubs or gallops GI: Other: Soft nontender nondistended normoactive bowel sounds Back/Spine/Pelvis: Other: Mild right CVA tenderness Neuro: Other: Cranial nerves 2-12 grossly intact as tested. Motor is 5/5 all extremities. Sensation is intact Extrem: Other: No edema bilaterally Results Labs 12/21/23 04:45 12/21/23 04:45 Labs: Laboratory Results - last 24 hr 12/21/23 12/21/23 12/21/23 04:45 05:11 10:30 MCV 84.4 MCH 28.7 MCHC 34.0 RDW 12.4 Plt Count 277 MPV 9.2 L Immature Gran % (Auto) 0.3 Neut % (Auto) 81.7 H Lymph % (Auto) 10.9 L [place] % (Auto) 5.4 Eos % (Auto) 1.4 Baso % (Auto) 0.3 Lymph # (Auto) 1.3 [place] # (Auto) 0.6 Eos # (Auto) 0.2 Baso # (Auto) 0.0 Abs Immat Gran (auto) 0.03 Absolute Neuts (auto) 9.7 H Absolute Nucleated RBC 0.000 Nucleated RBC % (auto) 0.0 Anion Gap 14 Estim Creat Clear Calc 73.9 Estimated GFR > 60 Random Glucose 137 H Lactic Acid 0.9 Calcium 9.6 Total Bilirubin 0.7 Direct Bilirubin 0.2 AST 18 ALT 26 Alkaline Phosphatase 118 H Total Protein 7.5 Albumin 4.3 Lipase 15 Urine Color Yellow Urine Appearance Clear Urine pH 6.0 Ur Specific [place] 1.025 Urine Protein Negative Urine Glucose (UA) Negative Urine Ketones Trace Urine Blood Large (3+) H Urine Nitrite Negative Ur Leukocyte Esterase Trace H Urine RBC >20 H Urine WBC 6-10 H Ur Squamous Epith Cells 3-5 Urine Bacteria None Seen Hyaline Casts 0-2 Imaging Radiologist's Impressions: Impressions Abdomen/Pelvis CT 12/21/23 09:21 IMPRESSION: 1. 3 mm obstructive right distal ureter radiopaque calculi with mild to moderate hydroureteronephrosis and perinephric stranding. 2. There is no radiopaque calculi in the left kidney. 3. Mild constipation. Nonspecific intramural fat in the descending colon and terminal ileum but no pericolic fat stranding. Appendix is not seen. Fleischner guidelines were followed. Assessment and Plan (1) Ureteral stone: Status: Acute (2) Hydronephrosis: Qualifiers: Hydronephrosis type: with renal calculous obstruction Qualified Code(s): N13.2 - Hydronephrosis with renal and ureteral calculous obstruction Status: Acute (3) UTI (urinary tract infection): Qualifiers: Urinary tract infection type: acute pyelonephritis Qualified Code(s): N10 - Acute pyelonephritis Status: Acute Plan 53-year-old female with less than 24 hours of acute onset right flank pain. Patient denies fever chills. On presentation to the ER, CT abdomen and pelvis demonstrated a right obstructive ureteral stone. Scheduled for stone removal and stent placement 1. Hydronephrosis/obstructive right renal calculi -stone removal and stent as per Urology -further plans forthcoming postoperatively 2. UTI (CT findings suspicious for pyelonephritis) -continue ceftriaxone 1 g IV daily -await urine and blood cultures and adjust therapies as appropriate Full code Boots Will require overnight stay for stone removal and IV antibiotics to treat pyelonephritis/specialist consultation. This can not be achieved a lesser acute setting Quality Stroke Does the patient have a stroke diagnosis?: No VTE Prior VTE?: No VTE Risk Level:: Medical - moderate - high VTE Device Contraindication: N/A - Device Ordered VTE Drug Contraindication: Treatment Not Indicated
--- NOTE | 2023-12-21 14:08 | PC.NURSE ---
patient c/o 5/[address] brasher ordered tyenol 1000 mg iv. given with good result. patient resting comfortable now. per dr. english preop antibiotic is gentamicin as she ordered. stated pt. received rocephin in er and none to be given preop
--- NOTE | 2023-12-21 14:14 | MHC.SHP ---
Pre-Procedural Eval Section A - 24 Hr Update-Section A only Date of Service: 12/21/23 The patient is an INPATIENT: Yes The patient has been examined within 24 hours of the surgical procedure. The History & Physical has been completed within 30 days and I have reviewed it.: Yes Section B - Complete if H&P > 30 days Chief Complaint: Ureteral stone Allergies: Allergies Allergy/AdvReac Type Severity Reaction Status Date / Time Sulfa (Sulfonamide Allergy Unknown ITCHY Verified 12/21/23 12:46 Antibiotics) [SULFA (SULFONAMIDE ANTIBIOTICS)] sulfacetamide Allergy Unknown Unknown Verified 12/21/23 12:46 Plan Diagnosis/Plan: Unchanged I have reviewed the history and physical and performed a pertinent physical examination on my patient. No changes have occurred unless specified. Cystoscopy retrograde, right ureteral stent, possible ureteroscopy laser stone extraction. Discussed risks to include but not limited to, blood in the urine, burning with urination, urgency. Time Spent With Patient Time: Total time managing care of this patient today ____ minutes.
--- NOTE | 2023-12-21 14:33 | PC.NURSE ---
family took all belongings.
--- NOTE | 2023-12-21 15:45 | P.OP_ITS ---
Operative Note Operative Note Date of Service: 12/21/23 Narrative: PreOperative Diagnosis:?? Right ureteral stone, right hydronephrosis, obstructive uropathy, UTI Post Operative Diagnosis:?? ?Right ureteral stone, right hydronephrosis, obstructive uropathy, UTI Procedure:- cystoscopy, right retrograde- right stent insertion, size 6 [place] by 24 cm Surgeon:?Dr Ari Soliz Anesthesia:? General Indications for procedure: Siomara is a 53-year-old female who presented to the emergency room with right flank pain. CT abdomen and pelvis without IV contrast noted an obstructing 3 mm distal right ureteral stone with hydronephrosis and perinephric stranding. Lab work notable for elevated serum white count. The patient received a 1 gm of ceftriaxone IV in the emergency room. Procedure: After informed consent was verified the patient was brought to the operating placed on the OR table in supine position.? General Anesthesia was administered per protocol.? The patient has history of bilateral knee surgery and left hip surgery, there was some rigidity to the lower extremities; she was positioned carefully in limited lithotomy position, prepped and draped in the usual sterile fashion.? Safety pause time-out and side of surgery confirmed.? Gentamicin 160 mg IV administered by anesthesia. A 22 Singaporean cystoscope was inserted transurethrally, The bladder was visualized.? The right ureteral orifice was visualized. The? right ureteric orifice was cannulated? and urine was briskly draining from the kidney and was sent for culture. A retrograde examination was performed, a filling defect was noted distally consistent with the stone with dilatation proximal. A hydrophilic guidewire was placed up to the level of the renal pelvis under fluoroscopy. The open-ended ureteral catheter was then replaced over the guidewire to the proximal ureter another retrograde was done to delineate the renal pelvis which was also dilated. The guidewire was replaced the open-ended catheter was removed and the double-J stent was placed over the guidewire. A 6 fr by 24 cm ureteral stent was passed over the guide wire under fluoroscopic guidance. The guide wire was removed. The bladder was emptied.? The rigid cystoscope was removed. ? 2% lidocaine jelly was passed transurethrally into the bladder. The patient tolerated the procedure well and was brought to the recovery room in stable condition. Complications: None Drains: Ureteral stent as dictated above
[2023-12-21] MEDS: Lactated Ringers 1,000 ML 150 ML IVCONT (17:28)
[2023-12-21] MEDS: 0.9 % Sodium Chloride Flush 3 ML SYRINGE IVFLUSH (17:28)
--- NOTE | 2023-12-21 19:24 | PHA.MEDREC ---
Pharmacy Consult ? Medication Reconciliation Pharmacy has completed the medication reconciliation.Spoke with patient and this med rec is correct.
--- NOTE | 2023-12-22 | ECG_ITS ---
Test Reason : chest pressure Blood Pressure : / mmHG Vent. Rate : 081 BPM Atrial Rate : 081 BPM P-R Int : 142 ms QRS Dur : 068 ms QT Int : 370 ms P-R-T Axes : 041 027 034 degrees QTc Int : 429 ms Sinus rhythm with occasional Premature ventricular complexes Otherwise normal ECG No previous ECGs available Referred By: Ellis Sutton Electronically Signed By:CORNELIO LOZOYA
[2023-12-22] MEDS: Lactated Ringers 1,000 ML 150 ML IVCONT ×2 (01:06→08:25)
[2023-12-22 04:44] VITALS: BP 148/63; PULSE 51; RESP 16; TEMP 36; O2SAT 98
[2023-12-22 06:42] LABS: MANUAL DIFF FLAG NO
[2023-12-22 06:52] LABS: Basophils Percent Auto 0.1 % (0-2); Hematocrit 35.7 % (37.0-47.0); Hemoglobin 12.1 g/dl (12.0-16.0); Imm Gran Abs Auto 0.02 X10*3/uL (0.00-0.03); Imm Gran Pct Auto 0.3 % (0.0-0.4); Lymphocytes Absolute Auto 1.2 X10*3/uL (1.2-4.9); Lymphocytes Percent Auto 16.6 % (20-40); Mean Corpuscular HGB Conc 33.9 g/dl (31.0-35.0); Mean Corpuscular Hemoglobin 29.7 pg (27.0-33.0); Mean Corpuscular Volume 87.7 fL (80.0-98.0); Mean Platelet Volume 10.6 fL (9.4-12.3); Monocytes Absolute Auto 0.5 X10*3/uL (0.1-1.2); Monocytes Percent Auto 6.8 % (2-11); Neutrophils Absolute Auto 5.5 x10*3/uL (2.0-8.3); Neutrophils Percent Auto 76.2 % (45-73); Platelet Count 222 X10*3/uL (160-400); Red Blood Count 4.07 X10*6/uL (4.20-5.50); Red Cell Distribution Width 12.7 % (11.0-16.0); White Blood Count 7.2 X10*3/uL (4.8-10.8)
[2023-12-22 07:31] LABS: Alanine Aminotransferase 18 U/L (0-31); Albumin Level 3.3 g/dL (3.5-5.0); Alkaline Phosphatase 84 U/L (39-117); Anion Gap 10 (12-20); Aspartate Amino Transferase 15 U/L (5-31); Bilirubin Total 0.5 mg/dL (0.0-1.0); Blood Urea Nitrogen 11 mg/dL (9-16); Calcium 8.6 mg/dL (8.4-10.2); Carbon Dioxide 24 mmol/L (22-29); Chloride 112 mmol/L (96-108); Creatinine Clr Calc Pharmacy 90.4; Estimated Glomerular Filt Rate > 60; Glucose Random 132 mg/dL (60-115); Potassium 4.1 mmol/L (3.3-5.1); Sodium 142 mmol/L (135-145)
[2023-12-22 07:39] VITALS: BP 115/56; PULSE 66; RESP 17; TEMP 36.6; O2SAT 97
[2023-12-22] MEDS: Cholecalciferol (Vitamin D3) 25 MCG TABLET 50 MCG PO (08:23)
--- NOTE | 2023-12-22 09:02 | MHC.CM.PN ---
Addendum entered by Jennifer Wagner RN 12/22/23 13:28: Patient now inpatient. IMM delivered. Original Note: HOLDER DELIVERED. PATIENT LIVES AT HOME W/ ADULT DAUGHTER. AMBULATES W/ CANE, USES [facility]. NO SERVICES. CURRENTLY ON O2, BUT NOT ON HOME O2. PCP JENNIFER SALDANA MD HCP - REPORTS HCP IS [facility]ON ROSA REID [phone], COPY REQUESTED FROM [facility] DP: GOAL IS HOME SELF CARE, FAMILY TO TRANSPORT. CM WILL CONTINUE TO FOLLOW.
--- NOTE | 2023-12-22 11:51 | HO.PM.IMPN ---
Subjective Subjective Date of Service: 12/22/23 Interval History: No acute issues overnight. This a.m. complained of a dry cough sore throat and chest pain with cough Review of Systems Admits chest pain with cough Denies shortness of breath Denies nausea vomiting diarrhea Denies fever chills Physical Exam Vital Signs: Vital Signs: Last Vital Signs Temp 97.9 F 12/22/23 07:39 Pulse 66 12/22/23 07:39 Resp 17 12/22/23 07:39 BP 115/56 L 12/22/23 07:39 Pulse Ox 97 12/22/23 07:39 O2 Del Method Nasal Cannula 12/22/23 07:39 O2 Flow Rate 2.0 12/22/23 07:39 BMI result Body Mass Index 35.9 Const: Other: Awake alert no acute distress Resp: Other: Clear to auscultation bilaterally no rales rhonchi or wheezes Cardio: Other: No S4; positive S1-S2; no S3 murmurs rubs or gallops GI: Other: Soft nontender nondistended normoactive bowel sounds Back/Spine/Pelvis: Other: Mild right CVA tenderness Neuro: Other: Cranial nerves 2-12 grossly intact as tested. Motor is 5/5 all extremities. Sensation is intact Extrem: Other: No edema bilaterally Objective Data Active Medications Acetaminophen (Acetaminophen 325 Mg Tablet) 650 mg PO Q6H PRN PRN Reason: Pain, Mild (Pain Scale 1-3) Ceftriaxone Sodium 1 gm/ (Sodium Chloride) 50 mls @ 100 mls/hr IV Q24H [facility] Lactated Ringer's (Lr) 1,000 mls @ 150 mls/hr IVCONT .Q6H40M [facility] Last Admin: 12/22/23 08:25 Dose: 150 mls/hr Documented By: YAMILETH Ondansetron HCl (Ondansetron Hcl 4 Mg/2 Ml Vial) 4 mg IVPUSH Q8H PRN PRN Reason: Nausea and Vomiting Oxycodone HCl (Oxycodone Hcl Immed Release 5 Mg Tablet) 5 mg PO Q4H PRN PRN Reason: Pain, Severe (Pain Scale 7-10) Sodium Chloride (0.9 % Sodium Chloride Flush 3 Ml Syringe) 3 ml IVFLUSH QSHIFT [facility] Last Admin: 12/22/23 08:27 Dose: Not Given Documented By: YAMILETH Non-Admin Reason: IV Running Vitamin D (Cholecalciferol (Vitamin D3) 25 Mcg Tablet) 50 mcg PO DAILY [facility] Last Admin: 12/22/23 08:23 Dose: 50 mcg Documented By: YAMILETH Labs 12/22/23 05:50 12/22/23 05:50 Labs: Laboratory Results - last 24 hr 12/22/23 05:50 MCV 87.7 MCH 29.7 MCHC 33.9 RDW 12.7 Plt Count 222 MPV 10.6 Immature Gran % (Auto) 0.3 Neut % (Auto) 76.2 H Lymph % (Auto) 16.6 L [place] % (Auto) 6.8 Eos % (Auto) 0.0 Baso % (Auto) 0.1 Lymph # (Auto) 1.2 [place] # (Auto) 0.5 Eos # (Auto) 0.0 Baso # (Auto) 0.0 Abs Immat Gran (auto) 0.02 Absolute Neuts (auto) 5.5 Absolute Nucleated RBC 0.000 Nucleated RBC % (auto) 0.0 Anion Gap 10 L Estim Creat Clear Calc 90.4 Estimated GFR > 60 Random Glucose 132 H Calcium 8.6 D Total Bilirubin 0.5 AST 15 ALT 18 Alkaline Phosphatase 84 Total Protein 6.0 L Albumin 3.3 L Microbiology Microbiology Results: Microbiology 12/21/23 14:12 Urine Culture - Preliminary Urine Catheterized - Straight Catheter No growth to date. 12/21/23 Unknown Urine Culture - Final Urine clean catch - Urine peña top Assessment and Plan (1) Hydronephrosis: Status: Acute (2) Ureteral stone: Status: Acute (3) Abnormal chest x-ray: Status: Acute Plan 53-year-old female with less than 24 hours of acute onset right flank pain. Patient denies fever chills. On presentation to the ER, CT abdomen and pelvis demonstrated a right obstructive ureteral stone. Scheduled for stone removal and stent placement 1. Hydronephrosis/obstructive right renal calculi -tolerated procedure well; no acute issues overnight -further plans forthcoming postoperatively 2. UTI -despite active urinary sediment; culture negative. Will DC ceftriaxone -CT scan reviewed her radiology; no CT evidence of pyelonephritis 3. Post op cough with reproducible chest pain -EKG done.. . Unremarkable -chest x-ray clear as far as consolidation. . . Radiodensity along the right distal trachea with fissural thickening noted nonspecific per read. -as Pulmonary consult to determine if further workup is indicated Full code Boots Will require overnight stay for stone removal and IV antibiotics to treat pyelonephritis/specialist consultation. This can not be achieved a lesser acute setting Quality Stroke Does the patient have a stroke diagnosis?: No VTE Prior VTE?: No VTE Risk Level:: Medical - moderate - high VTE Device Contraindication: N/A - Device Ordered VTE Drug Contraindication: Treatment Not Indicated
--- NOTE | 2023-12-22 12:47 | HO.POSTANES ---
Post Anesthesia Evaluation Post Anesthesia Evaluation Date of Service: 12/22/23 Vital Signs: Vital Signs Temp Pulse Resp BP Pulse Ox O2 Del Method O2 Flow Rate 12/22/23 07:39 97.9 F 66 17 115/56 L 97 Nasal Cannula 2.0 12/22/23 04:44 96.8 F 51 16 148/63 H 98 Nasal Cannula 2 Anesthesia: General Mental Status: Awake Pain Control: Satisfactory Nausea/Vomiting: None Hydration: Adequate Anesthesia-Related Issues: No Anes. Related Issues
--- NOTE | 2023-12-22 13:06 | PM.CNPUL ---
History of Present Illness History of Present Illness Consult date: 12/22/23 Requesting physician: Ellis Sutton Chief complaint: Dyspnea, abnormal chest x-ray Narrative: 53-year-old lady, nonsmoker, with underlying history of renal stones, now postoperative day 1 after cystoscopy with right stent insertion with development of hypoxia and dyspnea after procedure requiring supplemental oxygen. Chest x-ray was obtained that showed underlying interstitial prominence and possible peritracheal density. Patient is approximately 5 L positive since admission and does complain of some intermittent chest tightness. She denies prior history of lung issues. Patient states that chest tightness is not completely new for her. Review of Systems Constitutional: Constitutional: Denies daytime sleepiness, Denies excessive sweating, Denies fatigue, Denies fever(s), Denies lethargy, Denies malaise, Denies night sweats, Denies snoring and Denies weight loss Eyes: Eyes: Denies blurry vision and Denies itchy eyes ENT: Denies nasal congestion, Denies post nasal drip, Denies sinus pain, Denies sinus pressure and Denies other ( Thrush) Cardiovascular: Cardiovascular: Denies chest pain, Denies pedal edema, Denies dyspnea, Denies orthopnea, Denies paroxysmal nocturnal dyspnea and Reports other (Chest tightness) Respiratory: Respiratory: Denies cough, Denies hemoptysis, Denies excessive phlegm production, Denies dyspnea, Denies snoring and Denies wheezing Gastrointestinal: Gastrointestinal: Denies abdominal pain and Denies heartburn Musculoskeletal: Musculoskeletal: Denies myalgias, Denies arthralgias and Denies joint swelling Integumentary/Breasts: Skin/Breast: Denies rash Neurologic: Denies memory loss and Denies seizure-like activity Psychiatric: Psychiatric: Denies abnormal sleep pattern, Denies anxiety and Denies memory loss Endocrine: Endocrine: Denies excessive sweating, Denies fatigue and Denies heat intolerance Hematologic/Lymphatic: Hematologic/Lymphatic: Denies easy bruising Allergic/Immunologic: Allergic/Immunologic: Denies itchy eyes, Denies seasonal rhinorrhea and Denies wheezing PMFSH Past Medical History Medical History Menopause Surgical History Surgical History History of total bilateral knee replacement Hx of section Hx of colonoscopy History of total left hip replacement Social History Social History Alcohol intake: current Alcohol intake frequency: a few times a week Patient Tobacco Use Status: Former Tobacco user Second Hand Smoke Exposure: No Advance Directives Date on File: 12/21/23 service: No Meds Allergies Allergy/AdvReac Type Severity Reaction Status Date / Time Sulfa (Sulfonamide Allergy Unknown ITCHY Verified 12/21/23 12:46 Antibiotics) [SULFA (SULFONAMIDE ANTIBIOTICS)] sulfacetamide Allergy Unknown Unknown Verified 12/21/23 12:46 Active Medications: Current Medications Acetaminophen (Acetaminophen 325 Mg Tablet) 650 mg PO Q6H PRN PRN Reason: Pain, Mild (Pain Scale 1-3) Ceftriaxone Sodium 1 gm/ (Sodium Chloride) 50 mls @ 100 mls/hr IV Q24H [facility] Lactated Ringer's (Lr) 1,000 mls @ 150 mls/hr IVCONT .Q6H40M [facility] Last Admin: 12/22/23 08:27 Dose: Not Given Ondansetron HCl (Ondansetron Hcl 4 Mg/2 Ml Vial) 4 mg IVPUSH Q8H PRN PRN Reason: Nausea and Vomiting Oxycodone HCl (Oxycodone Hcl Immed Release 5 Mg Tablet) 5 mg PO Q4H PRN PRN Reason: Pain, Severe (Pain Scale 7-10) Sodium Chloride (0.9 % Sodium Chloride Flush 3 Ml Syringe) 3 ml IVFLUSH QSHIFT [facility] Last Admin: 12/22/23 08:27 Dose: Not Given Vitamin D (Cholecalciferol (Vitamin D3) 25 Mcg Tablet) 50 mcg PO DAILY [facility] Last Admin: 12/22/23 08:23 Dose: 50 mcg Home Medications Medication Instructions Recorded Confirmed Last Taken Type acetaminophen 650 mg 1,300 mg PO Q12H PRN Pain (Scale 12/21/23 12/21/23 Unknown History tablet,extended release Score 1-3) cholecalciferol (vitamin D3) 50 50 mcg PO DAILY 12/21/23 12/21/23 Unknown History mcg (2,000 unit) tablet (Vitamin D3) meloxicam 15 mg tablet 15 mg PO DAILY PRN Moderate Pain 12/21/23 12/21/23 Unknown History (Scale Score 5-6) Physical Exam Vital Signs: Vital Signs: Last Vital Signs Temp 97.9 F 12/22/23 07:39 Pulse 66 12/22/23 07:39 Resp 17 12/22/23 07:39 BP 115/56 L 12/22/23 07:39 Pulse Ox 97 12/22/23 07:39 O2 Del Method Nasal Cannula 12/22/23 07:39 O2 Flow Rate 2.0 12/22/23 07:39 BMI result Body Mass Index 35.9 Const: General: no acute distress and alert Nutritional Appearance: not obese Orientation/consciousness: Other orientation findings ( oriented) HEENT: Head: Yes atraumatic Eyes: General: appearance normal, both eyes and all related structures Sclerae: sclerae normal EOM: EOMs intact bilaterally Neck: Neck: Yes supple Lymphatic: no lymphadenopathy noted Resp: Effort & Inspection: normal respiratory effort and no use of accessory muscles Auscultation: crackles (Bibasilar) Cardio: Rate: regular rate Rhythm: regular rhythm Heart sounds: no gallops, no murmurs and no rubs Skin: General skin exam: other ( warm) Extrem: General: No clubbing, No cyanosis and No edema Results Laboratory Findings 12/22/23 05:50 12/22/23 05:50 Abnormal lab findings: Abnormal Labs 12/21/23 12/21/23 12/22/23 04:45 05:11 05:50 WBC 11.8 H RBC 4.07 L Hct 35.7 L MPV 9.2 L Neut % (Auto) 81.7 H 76.2 H Lymph % (Auto) 10.9 L 16.6 L Absolute Neuts (auto) 9.7 H Chloride 112 H Anion Gap 10 L BUN 20 H Random Glucose 137 H 132 H Alkaline Phosphatase 118 H Total Protein 6.0 L Albumin 3.3 L Urine Blood Large (3+) H Ur Leukocyte Esterase Trace H Urine RBC >20 H Urine WBC 6-10 H Microbiology: Microbiology 12/21/23 10:30 Blood - Venous Blood Culture - Preliminary No growth after 24 hours. 12/21/23 10:30 Blood - Venous Blood Culture - Preliminary No growth after 24 hours. 12/21/23 14:12 Urine Catheterized - Straight Catheter Urine Culture - Preliminary No growth to date. 12/21/23 Unknown Urine clean catch - Urine peña top Urine Culture - Final Assessment and Plan (1) Abnormal chest x-ray: Status: Acute (2) Acute hypoxic respiratory failure: Status: Acute Plan Impression: 53-year-old lady status post a right ureteral stenting now with dyspnea and interstitial findings on chest x-ray likely related to volume overload. Recommendations: Consider discontinuation of continuous IV fluid. Consider further evaluation with CT chest. Consider low-dose diuretic. Procedures Date of Service Date of Service: 12/22/23
[2023-12-22] MEDS: cefTRIAXone sodium 1 GM in 0.9 % Sodium Chloride 50 ML IV (13:15)
[2023-12-22 15:05] VITALS: BP 118/56; PULSE 95; RESP 14; TEMP 36.2; O2SAT 91
[2023-12-22] MEDS: 0.9 % Sodium Chloride Flush 3 ML SYRINGE IVFLUSH ×2 (17:06→21:29)
[2023-12-22] MEDS: Furosemide 20 MG/2 ML VIAL IVPUSH (17:06)
[2023-12-22] MEDS: Phenazopyridine HCL 200 MG TABLET PO (18:39)
[2023-12-22 19:38] VITALS: PULSE 110; O2SAT 98
[2023-12-22 20:59] VITALS: BP 131/62; PULSE 92; RESP 18; TEMP 37.2; O2SAT 96
[2023-12-22 23:54] VITALS: BP 121/62; PULSE 83; RESP 18; TEMP 36.6; O2SAT 93
[2023-12-23 04:05] VITALS: BP 123/58; PULSE 76; RESP 18; TEMP 36.3; O2SAT 95
[2023-12-23 06:52] LABS: MANUAL DIFF FLAG NO
--- NOTE | 2023-12-23 07:00 | CA_ITS ---
Transthoracic Echocardiogram Patient (Last, First, Middle): [place] S Gender: Female Date of : 1970 Age: 53 Procedure Date: 12/23/2023 Procedure Type: Transthoracic Echocardiogram Location: S3E Height: 142. cm Weight: 72.58 kg BSA: 1.61 m2 Heart Rate: 80 bpm BP: 123 / 58 mmHg Microfiche Duplicator: TERRIE Referring MD: Ellis Sutton DO Symptoms: sob Study Quality: Fair ECG Rhythm: Sinus Conclusions: - The left ventricular systolic function is hyperdynamic. The visually estimated ejection fraction is >70%. - No obvious valvular pathology seen on this study. Findings Left Ventricle Normal left ventricular cavity size. The left ventricular systolic function is hyperdynamic. The visually estimated ejection fraction is >70%. There is no evidence of regional wall motion abnormalities. Diastolic function is normal for age. There is mild septal asymmetric hypertrophy. LV peak GLS 18.2%. Right Ventricle Normal right ventricular cavity size and systolic function. Atria Both atria are normal in size. Aortic Valve There is a normal trileaflet aortic valve. There is no aortic valve stenosis. There is no aortic valve regurgitation. Mitral Valve The mitral valve appears normal. There is trace mitral valve regurgitation. There is no mitral valve stenosis. Pulmonic Valve The pulmonic valve is likely normal. Tricuspid Valve Normal tricuspid valve structure. There is trace tricuspid valve regurgitation. There is no evidence of pulmonary hypertension. Great Vessels The asc aorta is normal in size. Venous The inferior vena cava is normal in size and collapses greater than 50% with inspiration. Pericardium/Pleural There is no evidence of pericardial effusion. Prior Study Comparison No prior study available for comparison. Recommendations, Care & Conclusions No obvious valvular pathology seen on this study. Measurements 2D Linear Measurements IVSd: 1.12 0.6-0.9/0.6-1.0 cm LVIDd: 4.13 3.9-5.3/4.2-5.9 cm LVIDd Index: 2.57 2.4-3.2/2.2-3.1 cm/m2 LVIDs: 2.25 2.0-3.6 cm LVPWd: 0.84 0.7-1.1 cm LA Diam: 3.30 2.7-3.8/3.0-4.0 cm LAIDs Index: 2.05 1.5-2.3 cm/m2 LV Mass: 161.41 67-162/88-224 g LV Mass Index: 100.25 43-95/49-115 g/m2 LVOT Diam: 1.90 3.0+(-)1.3 cm 2D Systolic Function EF 4C: 74.00 >55% EF 2C: 76.80 >55% EF BiP: 76.20 >55% Mitral Valve MV Pk E: 1.11 MV PK A: 0.76 MV Decel Time: 191.00 E/A: 1.50 E'Lateral: 8.05 E'Medial: 8.05 E/E' Med: 13.80 E/E' Lat: 13.80 PHT: 56.00 MVA PHT: 3.93 Decel [place]: 5.79 Aortic Valve AoV Pk [place]: 1.89 AoV Mn Darwin: 1.34 AoV VTI: 0.38 AoV Pk Grad: 14.00 Aov Mn Grad: 8.00 JOSÉ MIGUEL Cont.VTI: 2.39 LVOT LVOT Pk [place]: 1.56 LVOT Mn Darwin: 1.10 LVOT VTI: 0.32 LVOT Pk Grad: 10.00 LVOT Mn Grad: 6.00 LVOT Diam: 1.90 LVOT Area: 2.84 Diastolic Function MV Pk E: 1.11 MV Pk A: 0.76 E/A: 1.50 E'Medial: 8.05 E/E' Med: 13.80 E' Laterial: 8.05 E/E' Lat: 13.80 Right Ventricle TAPSE (mm): 27.90 TVS' Darwin: 15.40 Tricuspid Valve TR Pk Darwin: 2.20 TR Pk Grad: 19.00 RA Press: 3.00 RVSP: 22.00 Great Vessels Aorta Sinus of Valsalva: 2.70 2.0-3.5 cm Ao Asc: 2.60 2.1-3.4 cm Pulmonary Valve PV Pk [place]: 0.94 Peak PV Grad: 4.00 Updated in Other Vendor System with Status of Final Wong Plummer MD electronically signed on 12/23/2023 11:35:23 AM with status of Final
[2023-12-23 07:09] LABS: Basophils Percent Auto 0.4 % (0-2); Eosinophils Absolute Auto 0.1 X10*3/uL (0.0-0.4); Eosinophils Percent Auto 1.3 % (0-4); Hematocrit 35.8 % (37.0-47.0); Hemoglobin 12.1 g/dl (12.0-16.0); Imm Gran Abs Auto 0.03 X10*3/uL (0.00-0.03); Imm Gran Pct Auto 0.3 % (0.0-0.4); Lymphocytes Absolute Auto 3.2 X10*3/uL (1.2-4.9); Lymphocytes Percent Auto 34.5 % (20-40); Mean Corpuscular HGB Conc 33.8 g/dl (31.0-35.0); Mean Corpuscular Hemoglobin 29.3 pg (27.0-33.0); Mean Corpuscular Volume 86.7 fL (80.0-98.0); Mean Platelet Volume 10.4 fL (9.4-12.3); Monocytes Absolute Auto 0.6 X10*3/uL (0.1-1.2); Monocytes Percent Auto 6.5 % (2-11); Neutrophils Absolute Auto 5.3 x10*3/uL (2.0-8.3); Platelet Count 250 X10*3/uL (160-400); Red Blood Count 4.13 X10*6/uL (4.20-5.50); Red Cell Distribution Width 12.9 % (11.0-16.0); White Blood Count 9.3 X10*3/uL (4.8-10.8)
[2023-12-23 07:18] LABS: Alanine Aminotransferase 22 U/L (0-31); Albumin Level 3.5 g/dL (3.5-5.0); Alkaline Phosphatase 87 U/L (39-117); Aspartate Amino Transferase 14 U/L (5-31); Bilirubin Total 0.6 mg/dL (0.0-1.0); Blood Urea Nitrogen 12 mg/dL (9-16); Calcium 8.8 mg/dL (8.4-10.2); Creatinine Clr Calc Pharmacy 99.2; Estimated Glomerular Filt Rate > 60; Glucose Fasting 97 mg/dL (60-99); Total Protein 6.3 g/dL (6.5-8.0)
[2023-12-23 07:34] LABS: Anion Gap 15 (12-20); Carbon Dioxide 30 mmol/L (22-29); Chloride 105 mmol/L (96-108); Potassium 3.3 mmol/L (3.3-5.1); Sodium 147 mmol/L (135-145)
[2023-12-23 07:56] VITALS: BP 154/74; PULSE 76; RESP 17; TEMP 36.4; O2SAT 96
[2023-12-23] MEDS: Cholecalciferol (Vitamin D3) 25 MCG TABLET 50 MCG PO (09:07)
[2023-12-23] MEDS: Phenazopyridine HCL 200 MG TABLET PO ×3 (09:07→16:21)
[2023-12-23] MEDS: Acetaminophen 325 MG TABLET 650 MG PO ×3 (09:07→22:25)
[2023-12-23] MEDS: 0.9 % Sodium Chloride Flush 3 ML SYRINGE IVFLUSH ×2 (09:09→15:04)
[2023-12-23] MEDS: cefTRIAXone sodium 1 GM in 0.9 % Sodium Chloride 50 ML IV (11:07)
[2023-12-23 12:00] VITALS: O2SAT 96
--- NOTE | 2023-12-23 14:20 | P.DS_ITS ---
DS: Providers Provider Date of Service: 12/24/23 Date of admission: 12/22/23 13:15 Date of discharge: 12/24/23 Primary care physician: Erin Suarez MD Consults: 12/21/23 13:48 Consult to Urology Routine Consulting Provider: Ari Soliz Reason for consultation: Hydronephrosis Has provider been notified: Yes 12/22/23 11:16 Consult to Pulmonology Routine Consulting Provider: [facility] [place] Pulmonology Services Reason for consultation: Abnormal CXR Has provider been notified: Yes Attending physician on discharge: Akil Pacheco Discharging clinician: Ciara Solitario DS: Diagnosis Discharge Diagnosis (1) Abnormal chest x-ray: Status: Acute (2) Acute hypoxic respiratory failure: Status: Acute (3) Hydronephrosis: Status: Acute (4) Ureteral stone: Status: Acute DS: Summary Hospital Course Hospital Course: From H&P on the day of admission 53-year-old female presenting by ambulance with worsening right-sided flank pain with radiation to right lower quadrant, this pain started yesterday night around 23:30. Has not been improving instead has been worsening. Patient has never had pain like this before. She reports this has happened to her before, they told her that this could have been a kidney stone however unclear.. Reports that her urinary habits have been slightly different, she has been peeing less than usual and peeing small amounts when she is able to be. Denies chance of . Reports associated nausea & vomiting. Patient denies chest pain, shortness breath, headache, vision changes, dizziness, weakness, fevers, chills, changes in bowel habits. CT abdomen pelvis in ER demonstrated a 3 mm obstructive right distal ureter radiopaque calculi with mild to moderate hydronephrosis and perinephric stranding. She was seen in consultation by Urology; stone removal with stent scheduled later today Hydronephrosis/obstructive right renal calculi s/p cystoscopy, with right stent insertion 12/[address] Soliz. cramping pain likely due to spams from the stent is improved. will need outpatient follow up with urology in 2 weeks UTI despite active urinary sediment culture negative. CT scan reviewed her radiology; no CT evidence of pyelonephritis. discussed with urology - recommends 5 days of antibiotics. Initially treated with IV Ceftriaxone, will be discharged to complete course of ceftin on discharge Post op cough with reproducible chest pain/acute respiratory failure with hypoxia resolved. likely due to fluid overload. EKG done and no evidence of ischemia. chest x-ray clear as far as consolidation. seen by pulmonology who recommended c hest CT - c/w pulmonary edema. received one dose IV lasix 12/21 with good effect and resolution of symptoms. echo obtained - EF hyperdynamic, no diastolic dysfunction or WMA, no valvular issues. Did initially require supplemental oxygen, but after lasix was able to be weaned off of oxygen and has been back on room air and without respiratory symptoms. able to ambulate without shortness of breath Time Attestation Total time managing care of this patient today: 36 mintues. Discharge Coordination Time (in mins): 36 Quality: Safe Use of Opioids Does Pt have an Active Cancer Diagnosis on the Problem List?: No Quality: Stroke Does the patient have a stroke diagnosis?: No Physical Exam Vital Signs: Vital Signs: Last Vital Signs Temp 97.6 F 12/23/23 07:56 Pulse 76 12/23/23 07:56 Resp 17 12/23/23 07:56 BP 154/74 H 12/23/23 07:56 Pulse Ox 96 12/23/23 12:00 O2 Del Method Room Air 12/23/23 12:00 O2 Flow Rate 1 12/22/23 20:59 BMI result Body Mass Index 35.9 Const: General: cooperative, comfortable, no acute distress, alert and awake Nutritional Appearance: average body habitus Orientation/consciousness: patient oriented x3 Resp: Effort & Inspection: normal respiratory effort, able to speak in complete sentences, no respiratory distress and no use of accessory muscles Cardio: Rate: regular rate GI: Inspection: No distended Palpation (GI): Soft to palpation and nontender Neuro: General: patient oriented x3, moves all extremities and CN's II-XI intact bilaterally Extrem: General: Yes no pedal edema DS: Data Data Completed and Pending Labs on day of discharge: Laboratory Results - last 24 hr 12/23/23 05:51 WBC 9.3 RBC 4.13 L Hgb 12.1 Hct 35.8 L MCV 86.7 MCH 29.3 MCHC 33.8 RDW 12.9 Plt Count 250 MPV 10.4 Immature Gran % (Auto) 0.3 Neut % (Auto) 57.0 Lymph % (Auto) 34.5 [place] % (Auto) 6.5 Eos % (Auto) 1.3 Baso % (Auto) 0.4 Lymph # (Auto) 3.2 [place] # (Auto) 0.6 Eos # (Auto) 0.1 Baso # (Auto) 0.0 Abs Immat Gran (auto) 0.03 Absolute Neuts (auto) 5.3 Absolute Nucleated RBC 0.000 Nucleated RBC % (auto) 0.0 Sodium 147 H Potassium 3.3 Chloride 105 Carbon Dioxide 30 H Anion Gap 15 BUN 12 Creatinine 0.52 Estim Creat Clear Calc 99.2 Estimated GFR > 60 Fasting Glucose 97 Calcium 8.8 Total Bilirubin 0.6 AST 14 ALT 22 Alkaline Phosphatase 87 Total Protein 6.3 L Albumin 3.5 Preliminary micro results at discharge 12/21/23 10:30 Blood Culture - Preliminary Blood - Venous No growth after 48 hours. 12/21/23 10:30 Blood Culture - Preliminary Blood - Venous No growth after 48 hours. Discharge Plan Discharge Anticipated Discharge Date/Time: 12/24/23 10:39 Patient Disposition: Home, Self-Care Discharge Diagnosis: obstructive uropathy kidney stone pulmonary edema acute respiratory failure with hypoxia Referrals: Ari Soliz MD [Physician] - 2 Weeks Erin Suarez MD [Primary Care Provider] - 1 Week Discharge Medications: New cefuroxime axetil 500 mg tablet 500 mg PO Q12H 4 Days Qty: 8 0RF phenazopyridine [Pyridium] 100 mg tablet 100 mg PO Q8H PRN (Reason: pain) Qty: 9 0RF solifenacin [Vesicare] 5 mg tablet 5 mg PO DAILY Qty: 14 0RF Continued meloxicam 15 mg tablet 15 mg PO DAILY PRN (Reason: Moderate Pain (Scale Score 5-6)) acetaminophen 650 mg tablet extended release 1,300 mg PO Q12H PRN (Reason: Pain (Scale Score 1-3)) cholecalciferol (vitamin D3) [Vitamin D3] 50 mcg (2,000 unit) tablet 50 mcg PO DAILY Discharge Orders: Discharge Order (Routine); Ordered 12/24/23 Ordered By: Ciara Solitario Activity on Discharge: As tolerated Stand Alone Forms: Patient Portal Discharge page Care Plan Goals: see below Health Concerns: obstructive uropathy s/p right ureteral stent placement Acute respiratory failure with hypoxia secondary to pulmonary edema - resolved UTI Plan of Treatment: Complete course of antibiotics as prescribed Call to schedule follow up appointment with Urology You had a few high blood pressure readings, call to schedule follow-up appointment with your primary care provider for close monitoring of your blood pressure Abnormal chest imaging, most likely secondary to pulmonary edema which has re solved. Would recommend outpatient follow-up imaging to ensure resolution. Discussed with PCP Assessment: see discharge summary Patient Instructions: Urinary Tract Infection in Women (DC), Hydronephrosis (DC), Ureteral Stent Placement (DC)
--- NOTE | 2023-12-23 14:56 | P.PNIM_ITS ---
Subjective Subjective Date of Service: 12/23/23 Interval History: seen and examined this morning follow up for hydronephrosis s/p right stent placement still with some cramping pain on the right side and dysuria no nausea or vomiting Review of Systems Review of Systems: Yes all other systems are reviewed and are negative Constitutional Constitutional: Denies chills and Denies fever(s) Cardiovascular Cardiovascular: Denies chest pain, Denies palpitations and Denies dyspnea Respiratory Respiratory: Denies dyspnea Endocrine Endocrine: Denies palpitations Physical Exam 2 Vital Signs: Vital Signs: Last Vital Signs Temp 97.6 F 12/23/23 07:56 Pulse 76 12/23/23 07:56 Resp 17 12/23/23 07:56 BP 154/74 H 12/23/23 07:56 Pulse Ox 96 12/23/23 12:00 O2 Del Method Room Air 12/23/23 12:00 O2 Flow Rate 1 12/22/23 20:59 BMI result Body Mass Index 35.9 Const: General: cooperative, comfortable, no acute distress, alert and awake Nutritional Appearance: average body habitus Orientation/consciousness: p atient oriented x3 Resp: Effort & Inspection: normal respiratory effort, able to speak in complete sentences, no respiratory distress and no use of accessory muscles Cardio: Rate: regular rate GI: Inspection: No distended Palpation (GI): Soft to palpation and nontender Neuro: General: patient oriented x3, moves all extremities and CN's II-XI intact bilaterally Extrem: General: Yes no pedal edema Objective Data Active Medications Acetaminophen (Acetaminophen 325 Mg Tablet) 650 mg PO Q6H PRN PRN Reason: Pain, Mild (Pain Scale 1-3) Last Admin: 12/23/23 09:07 Dose: 650 mg Documented By: CONSTANCE Ceftriaxone Sodium 1 gm/ (Sodium Chloride) 50 mls @ 100 mls/hr IV Q24H ERENDIRA Last Infusion: 12/23/23 12:03 Dose: Infused Documented By: CONSTANCE Ondansetron HCl (Ondansetron Hcl 4 Mg/2 Ml Vial) 4 mg IVPUSH Q8H PRN PRN Reason: Nausea and Vomiting Oxycodone HCl (Oxycodone Hcl Immed Release 5 Mg Tablet) 5 mg PO Q4H PRN PRN Reason: Pain, Severe (Pain Scale 7-10) Phenazopyridine HCl (Phenazopyridine Hcl 200 Mg Tablet) 200 mg PO [facility] Stop: 12/24/23 12:01 Last Admin: 12/23/23 11:05 Dose: 200 mg Documented By: CONSTANCE Sodium Chloride (0.9 % Sodium Chloride Flush 3 Ml Syringe) 3 ml IVFLUSH Q[facility] Last Admin: 12/23/23 09:09 Dose: 3 ml Documented By: CONSTANCE Vitamin D (Cholecalciferol (Vitamin D3) 25 Mcg Tablet) 50 mcg PO DAILY [facility] Last Admin: 12/23/23 09:07 Dose: 50 mcg Documented By: CONSTANCE Labs 12/23/23 05:51 12/23/23 05:51 Labs: Laboratory Results - last 24 hr 12/23/23 05:51 MCV 86.7 MCH 29.3 MCHC 33.8 RDW 12.9 Plt Count 250 MPV 10.4 Immature Gran % (Auto) 0.3 Neut % (Auto) 57.0 Lymph % (Auto) 34.5 [place] % (Auto) 6.5 Eos % (Auto) 1.3 Baso % (Auto) 0.4 Lymph # (Auto) 3.2 [place] # (Auto) 0.6 Eos # (Auto) 0.1 Baso # (Auto) 0.0 Abs Immat Gran (auto) 0.03 Absolute Neuts (auto) 5.3 Absolute Nucleated RBC 0.000 Nucleated RBC % (auto) 0.0 Anion Gap 15 Estim Creat Clear Calc 99.2 Estimated GFR > 60 Fasting Glucose 97 Calcium 8.8 Total Bilirubin 0.6 AST 14 ALT 22 Alkaline Phosphatase 87 Total Protein 6.3 L Albumin 3.5 Microbiology Microbiology Results: Microbiology 12/21/23 10:30 Blood Culture - Preliminary Blood - Venous No growth after 48 hours. 12/21/23 10:30 Blood Culture - Preliminary Blood - Venous No growth after 48 hours. 12/21/23 14:12 Urine Culture - Final Urine Catheterized - Straight Catheter No growth. Assessment and Plan (1) Hydronephrosis: Status: Acute (2) Ureteral stone: Status: Acute (3) Acute hypoxic respiratory failure: Status: Acute Plan This is a 53-year-old female who presented with right side flank pain and CT abdomen and pelvis demonstrated a right obstructive ureteral stone Hydronephrosis/obstructive right renal calculi s/p cystoscopy, with right stent insertion 12/[address] Soliz will with some dysuria and cramping abdominal pain- likely spams due to stent -continue pyridium and supportive care -will need outpatient follow up with urology in 2 weeks UTI despite active urinary sediment; culture negative CT scan reviewed her radiology; no CT evidence of pyelonephritis d/w urology - rec 5 days of antibiotics. will continue ceftriaxone and plan for ceftin on discharge Post op cough with reproducible chest pain/acute respiratory failure with hypoxia resolved likely due to fluid overload EKG done. Unremarkable chest x-ray clear as far as consolidation. seen by pulmonology who recommended chest CT - c/w pulmonary edema received one dose IV lasix 12/21 with good effect and resolution of symptoms echo obtained - EF hyperdynamic, no diastolic dysfunction or WMA, no valvular issues back on room air hypernatremia, mild encourage po intake Full code Boots Requires ongoing stay for ongoing abdominal pain and IV antibiotics Quality Stroke Does the patient have a stroke diagnosis?: No VTE Prior VTE?: No VTE Risk Level:: Medical - moderate - high VTE Device Contraindication: N/A - Device Ordered VTE Drug Contraindication: Treatment Not Indicated
[2023-12-23] MEDS: oxyCODONE HCl Immed Release 5 MG TABLET PO ×3 (15:03→22:24)
--- NOTE | 2023-12-23 15:45 | PM.PNPUL ---
Subjective Subjective Date of Service: 12/23/23 Interval history: Dyspnea resolved, now off supplemental oxygen. Objective Data Labs 12/23/23 05:51 12/23/23 05:51 Labs: Laboratory Results - last 24 hr 12/23/23 05:51 WBC 9.3 RBC 4.13 L Hgb 12.1 Hct 35.8 L MCV 86.7 MCH 29.3 MCHC 33.8 RDW 12.9 Plt Count 250 MPV 10.4 Immature Gran % (Auto) 0.3 Neut % (Auto) 57.0 Lymph % (Auto) 34.5 [place] % (Auto) 6.5 Eos % (Auto) 1.3 Baso % (Auto) 0.4 Lymph # (Auto) 3.2 [place] # (Auto) 0.6 Eos # (Auto) 0.1 Baso # (Auto) 0.0 Abs Immat Gran (auto) 0.03 Absolute Neuts (auto) 5.3 Absolute Nucleated RBC 0.000 Nucleated RBC % (auto) 0.0 Sodium 147 H Potassium 3.3 Chloride 105 Carbon Dioxide 30 H Anion Gap 15 BUN 12 Creatinine 0.52 Estim Creat Clear Calc 99.2 Estimated GFR > 60 Fasting Glucose 97 Calcium 8.8 Total Bilirubin 0.6 AST 14 ALT 22 Alkaline Phosphatase 87 Total Protein 6.3 L Albumin 3.5 Microbiology Microbiology Results: Microbiology 12/21/23 10:30 Blood - Venous Blood Culture - Preliminary No growth after 48 hours. 12/21/23 10:30 Blood - Venous Blood Culture - Preliminary No growth after 48 hours. 12/21/23 14:12 Urine Catheterized - Straight Catheter Urine Culture - Final No growth. 12/21/23 Unknown Urine clean catch - Urine peña top Urine Culture - Final Physical Exam Vital Signs: Vital Signs: Last Vital Signs Temp 97.6 F 12/23/23 07:56 Pulse 76 12/23/23 07:56 Resp 17 12/23/23 07:56 BP 154/74 H 12/23/23 07:56 Pulse Ox 96 12/23/23 12:00 O2 Del Method Room Air 12/23/23 12:00 O2 Flow Rate 1 12/22/23 20:59 BMI result Body Mass Index 35.9 Const: General: no acute distress, alert and awake Eyes: Sclerae: sclerae normal EOM: EOMs intact bilaterally Neck: Neck: Yes no lymphadenopathy, Yes trachea midline and Yes supple Resp: Effort & Inspection: normal respiratory effort and no respiratory distress Auscultation: clear to auscultation bilaterally Cardio: Rate: regular rate Rhythm: regular rhythm Heart sounds: no gallops, no murmurs and no rubs GI: Palpation (GI): Soft to palpation and Other GI palpation findings present ( Nontender) Auscultation: normal bowel sounds Extrem: General: Yes no pedal edema, No clubbing and No cyanosis Procedures Date of Service Date of Service: 12/23/23 Assessment and Plan Assessment and plan (1) Acute hypoxic respiratory failure: Status: Acute (2) Pulmonary edema: Status: Acute Plan Impression: 53-year-old lady status post a right ureteral stenting further complicated by dyspnea and acute hypoxic respiratory failure secondary to pulmonary edema from volume overload. CT chest reviewed. Patient's symptoms did improve with diuretic. Recommendations: At this time essentially at baseline. Continue to maintain euvolemia. Time Spent With Patient Time: Total time managing care of this patient today ____ minutes. Progress Note: Quality Stroke Does the patient have a stroke diagnosis?: No
[2023-12-23 16:00] VITALS: BP 133/64; PULSE 84; RESP 24; TEMP 36.3; O2SAT 98
[2023-12-23 23:39] VITALS: BP 142/71; PULSE 64; RESP 18; TEMP 37.6; O2SAT 96
[2023-12-24] MEDS: Phenazopyridine HCL 200 MG TABLET PO ×2 (07:29→12:11)
[2023-12-24] MEDS: Acetaminophen 325 MG TABLET 650 MG PO (07:29)
[2023-12-24] MEDS: Cholecalciferol (Vitamin D3) 25 MCG TABLET 50 MCG PO (07:30)
[2023-12-24] MEDS: 0.9 % Sodium Chloride Flush 3 ML SYRINGE IVFLUSH (07:30)
[2023-12-24 07:37] LABS: Anion Gap 12 (12-20); Blood Urea Nitrogen 15 mg/dL (9-16); Calcium 8.9 mg/dL (8.4-10.2); Carbon Dioxide 28 mmol/L (22-29); Chloride 105 mmol/L (96-108); Creatinine Clr Calc Pharmacy 97.3; Estimated Glomerular Filt Rate > 60; Glucose Random 95 mg/dL (60-115); Potassium 3.3 mmol/L (3.3-5.1); Sodium 142 mmol/L (135-145)
[2023-12-24 07:57] VITALS: BP 160/83; PULSE 72; RESP 17; TEMP 36.4; O2SAT 94
--- NOTE | 2023-12-24 10:12 | P.CDIM_ITS ---
PROVIDER RESPONSE TEXT: To clarify, the appropriate diagnosis supported by the clinical indicators: Acute QUERY TEXT: PHYSICIAN'S DOCUMENTATION REQUEST Date of Query: 12/24/2023 09:04 AM EDT Patient Name: CAMRYN SERRATO Admit Date: 12/22/2023 Dear Patric Barajas, A review of the medical record indicates additional documentation may be needed. Please review below and update the documentation accordingly. Clinical Indicators: Per Pulmonary Progress Note 12/23/23: status post a right ureteral stenting further complicated by dyspnea and acute hypoxic respiratory fa ilure secondary to pulmonary edema from volume overload. CT chest reviewed. Patient's symptoms did improve with diuretic. Clarify which of the following accurately represents the acuity of the pulmonary edema. Possible options might include: Acute Chronic Other (explain) Clinically unable to determine (explain) Thank you, Yaneli Koo RN Use of terms such as suspected, likely, concern for, or probable (associated with a specific diagnosi s that is being evaluated, monitored, or treated as if it exists) are acceptable and can be coded in the inpatient se tting, when documented at the time of discharge. Please use your independent medical judgment in providing your response. THIS QUERY IS PART OF THE PERMANENT MEDICAL RECORD
[2023-12-24] MEDS: cefTRIAXone sodium 1 GM in 0.9 % Sodium Chloride 50 ML IV (10:30)
--- NOTE | 2023-12-24 10:35 | MHC.CM.PN ---
pt dcd home no servies
== END 2023-12-24 13:32 | disposition home or self-care (01) | DRG 659 ==
LOC: HO.ED 11:11 → HO.SSS 13:02 → HO.SSSA 13:57 → HO.S3 15:46
PROVIDERS: Physician Assistant; Urology; Admitting Provider Hospitalist; Emergency Provider Emergency Medicine; PCP Internal Medicine; Visit Provider Physician Assistant Medical
PROC: 0T768DZ Dilation of Right Ureter with Intraluminal Device, Via Natural or Artificial Opening Endoscopic (ICD-10-PCS; principal; 2023-12-21 14:10)
DX: N13.6 Pyonephrosis (principal); J81.0 Acute pulmonary edema; J96.01 Acute respiratory failure with hypoxia; E87.0 Hyperosmolality and hypernatremia; E87.70 Fluid overload, unspecified; Z87.891 Personal history of nicotine dependence; Z79.899 Other long term (current) drug therapy
CPT/HCPCS: 36415; 71045; 71250; 74176; 80048; 80053; 80076; 81001; 83605; 83690; 85025; 87040; 87086; 93005; 93306; 93356; 99285; C1769; C2617; J0131; J0696; J1100; J1885; J1940; J2250; J2270; J2405; J2704; J3010; J7120; Q9957; Q9967

== ENCOUNTER → 2023-12-21 06:55 | Outpatient (BNV) | payer OTHER, SELFPAY | PROVIDERS: Emergency Provider Emergency Medicine; PCP Internal Medicine; Visit Provider Urology | DX: N13.30 Unspecified hydronephrosis (principal); N20.1 Calculus of ureter; N39.0 Urinary tract infection, site not specified | CPT/HCPCS: 52332; 74420; 99222; 99284 ==

== ENCOUNTER → 2023-12-21 13:44 | Outpatient (BNV) | payer OTHER, SELFPAY | PROVIDERS: Admitting Provider Hospitalist; Emergency Provider Emergency Medicine; PCP Internal Medicine; Visit Provider Hospitalist | DX: N13.2 Hydronephrosis with renal and ureteral calculous obstruction (principal); J96.01 Acute respiratory failure with hypoxia; R93.89 Abnormal findings on diagnostic imaging of other specified body structures | CPT/HCPCS: 99223; 99232; 99233; 99239 ==

== ENCOUNTER → 2023-12-22 09:49 | Outpatient (BNV) | payer OTHER, SELFPAY | PROVIDERS: Admitting Provider Hospitalist; Emergency Provider Emergency Medicine; PCP Internal Medicine; Visit Provider Internal Medicine | DX: R07.89 Other chest pain (principal); I49.3 Ventricular premature depolarization | CPT/HCPCS: 93010 ==

== ENCOUNTER 2023-12-22 13:15 | Outpatient (BNV) | payer OTHER, SELFPAY | END 2023-12-23 07:00 | PROVIDERS: Admitting Provider Hospitalist; Emergency Provider Emergency Medicine; PCP Internal Medicine; Visit Provider Internal Medicine | DX: R06.02 Shortness of breath (principal) | CPT/HCPCS: 93306; 93356 ==

== ENCOUNTER → 2023-12-22 13:15 | Outpatient (BNV) | payer OTHER, SELFPAY | PROVIDERS: Admitting Provider Hospitalist; Emergency Provider Emergency Medicine; PCP Internal Medicine; Visit Provider Internal Medicine Pulmonary Disease | DX: J96.01 Acute respiratory failure with hypoxia (principal); J81.1 Chronic pulmonary edema | CPT/HCPCS: 99222; 99231 ==

== ENCOUNTER 2024-01-10 13:50 | Outpatient (REF) | payer OTHER, SELFPAY | END 2024-01-10 13:51 | disposition home or self-care (01) | LOC: HO.LAB 13:50 | PROVIDERS: PCP Internal Medicine; Visit Provider Urology | DX: R31.29 Other microscopic hematuria (principal); R10.9 Unspecified abdominal pain; N13.9 Obstructive and reflux uropathy, unspecified; N13.2 Hydronephrosis with renal and ureteral calculous obstruction | CPT/HCPCS: 81003; 87086; 99212 ==

== ENCOUNTER 2024-01-10 13:50 | Outpatient (AMB) | payer OTHER, SELFPAY ==
--- NOTE | 2024-01-10 14:07 | MHC.OFFVIS ---
Intake Intake Visit Reasons: 2w/up/ureteroscopy Intake Note: Patient presents today for a follow up on: Ureteroscopy procedure Meds- Meloxicam Allergies to Antibiotic- Sulfa Blood Thinner- None Health Safety Specialist Required: No Accompanied by: Self / Same As Patient Allergies Sulfa (Sulfonamide Antibiotics) [SULFA (SULFONAMIDE ANTIBIOTICS)] Allergy (Unknown, Verified 01/10/24 14:23) ITCHY sulfacetamide Allergy (Unknown, Verified 01/10/24 14:23) Unknown Medication List - Last Reconciled 01/10/24 by Ari Soliz MD acetaminophen ER 1,300 mg PO Q12H PRN cholecalciferol (vitamin D3) (Vitamin D3) 50 mcg PO DAILY meloxicam 15 mg PO DAILY PRN phenazopyridine (Pyridium) 200 mg PO Q8H pyridoxine (vitamin B6) 100 mg PO DAILY HPI HPI Comments History of Present Illness Details Lianexis is a 53-year-old female who is status post right ureteral stent for obstructing ureteral stone on 12/21/2023. She states for the last 2 days she has been having increasing pain on the right side. She has been having intermittent blood in the urine. Urinalysis positive blood no signs of infection. I have discussed at length diet modification to decrease risk of forming more kidney stones. I have discussed low oxalate diet and specific foods to avoid including certain green leafy vegetables, chocalate, nuts, tea, beets, rubarb; low sodium, decreased use of animal protein and the importance of hydration drinking up to 2-2.5 liters of fluids and use of adding lemon to water to increase citrate in the diet. A pamphlet is also provided today. Plan--I have discussed further evaluation with ureteroscopy stent removal possible laser lithotripsy. [facility] Medical History Menopause Surgical History History of total bilateral knee replacement Hx of section Hx of colonoscopy History of total left hip replacement Social History Alcohol intake: current Alcohol intake frequency: a few times a week Patient Tobacco Use Status: Former Tobacco user Second Hand Smoke Exposure: No Advance Directives Date on File: 12/21/23 service: No Review of Systems Const All systems reviewed & are unremarkable except as noted in HPI and below Reports no additional complaints Eyes Reports no additional complaints ENT Reports no additional complaints Card Reports no additional complaints Resp Reports no additional complaints GI Reports no additional complaints Reports as per HPI Musc Reports no additional complaints Skin/Breast Reports system reviewed and no additional complaints, except as documented Neuro Reports no additional complaints Psych Reports no additional complaints Endo Reports no additional complaints Rod/Lymph Reports no additional complaints Aller/Immun Reports no additional complaints Results AMB Urinalysis, Automated UA Leukoctes 0 Mukul/uL Last Edit by Simi Maldonadoangel Maldonado [facility] on 01/10/24 14:27 UA Nitrite Negative Last Edit by Simi Maldonadoangel Maldonado [facility] on 01/10/24 14:27 UA Urobilinogen 0.2 mg/dL Last Edit by Simi Maldonadoangel Maldonado [facility] on 01/10/24 14:27 UA Protein 30 mg/dL Last Edit by Simi Maldonadoangel Maldonado [facility] on 01/10/24 14:27 UA pH 6.0 Last Edit by Simi Maldonadoangel Maldonado [facility] on 01/10/24 14:27 UA Blood 200 [place]/uL Last Edit by Simi Maldonadoangel Maldonado [facility] on 01/10/24 14:27 UA Specific [place] 1.025 Last Edit by Simi Maldonadoangel Maldonado [facility] on 01/10/24 14:27 UA Ketone Positive Last Edit by Simi Maldonadoangel Maldonado [facility] on 01/10/24 14:27 5 mg/dl Simi Maldonadoangel Maldonado 01/10/24 14:27 UA Bilirubin 0 mg/dL Last Edit by Simi Maldonado Maldonado, [facility] on 01/10/24 14:27 UA Glucose 0 mg/dL Last Edit by [facility] Mal[facility], [facility] on 01/10/24 14:27 Results Reviewed Results Reviewed: Laboratory Last Values Urine pH (Auto) 6.0 01/10/24 14:24 Specific [place] (Auto) 1.025 01/10/24 14:24 Urine Protein (Auto) 30 mg/dL 01/10/24 14:24 Glucose (UA)(Auto) 0 mg/dL 01/10/24 14:24 Urine Ketones (Auto) Positive 01/10/24 14:24 Urine Blood (Auto) 200 [place]/uL 01/10/24 14:24 Urine Nitrite (Auto) Negative 01/10/24 14:24 Urine Bilirubin (Auto) 0 mg/dL 01/10/24 14:24 Urine Urobilinogen (Auto) 0.2 mg/dL 01/10/24 14:24 Leukocyte Esterase (Auto) 0 Mukul/uL 01/10/24 14:24 Date of Service: 12/21/23 EXAMINATION: CT ABDOMEN AND PELVIS WITHOUT CONTRAST CLINICAL INFORMATION: Right lower quadrant pain and flank pain. COMPARISON: None available. TECHNIQUE: Multidetector volumetric imaging was performed from the superior aspect of the liver through the pubic symphysis. Sagittal and coronal reformatted images were obtained on the technologist's workstation. This CT examination was performed using dose optimization techniques as appropriate, variously including the following: *Automated exposure control *Adjustment of mA and/or kV according to patient size (this includes techniques or standardized protocols for targeted exams where dose is matched to indication/reason for exam; i.e. extremities or head) *Use of iterative reconstruction technique DLP: 495 mGy-cm FINDINGS: LUNG BASES: There is bibasilar an lingular atelectasis. Heart size is normal. LIVER, GALLBLADDER, AND BILIARY TREE: The liver is normal in size, shape, and attenuation. No focal hepatic lesion or biliary ductal dilatation is present. The gallbladder is unremarkable with no evidence of radiopaque gallstones, gallbladder wall thickening, or obvious pericholecystic inflammatory changes. PANCREAS: Unremarkable. SPLEEN: Unremarkable. ADRENAL GLANDS: Unremarkable. KIDNEYS AND URETERS: There is a 3 mm obstructive right distal ureter radiopaque calculi resulting in mild to moderate hydroureteronephrosis. The right kidney is enlarged with moderate perinephric stranding. No radiopaque calculi seen in either kidneys. There is no radiopaque calculi left kidney. . There is moderate right perinephric stranding. BLADDER: Unremarkable. GASTROINTESTINAL TRACT: There is scattered stool and gas seen throughout the colon without significant distention. Is nonspecific intramural fat in the descending colon and terminal ileum but no pericolic fat stranding, a nonspecific finding. No mesenteric fat stranding, free fluid or free air seen. Appendix is not visualized. ABDOMINAL WALL: A small umbilical hernia containing fat is noted. LYMPH NODES: Normal. VASCULAR: Unremarkable. PELVIC VISCERA: The uterus is anteverted with of bulky fundus. No adnexal mass or free fluid seen. OSSEOUS STRUCTURES: There are degenerative disc changes throughout lower dorsal and lumbar spine. There is a left hip prosthesis and a chronic deformity of the right hip joint which appears fused. IMPRESSION: 1. 3 mm obstructive right distal ureter radiopaque calculi with mild to moderate hydroureteronephrosis and perinephric stranding. 2. There is no radiopaque calculi in the left kidney. 3. Mild constipation. Nonspecific intramural fat in the descending colon and terminal ileum but no pericolic fat stranding. Appendix is not seen. Assessment & Plan Assessment & Plan (1) Flank pain: Code(s): R10.9 - Unspecified abdominal pain (2) Ureteral stone: Code(s): N20.1 - Calculus of ureter (3) Obstructed, uropathy: Code(s): N13.9 - Obstructive and reflux uropathy, unspecified (4) Hydronephrosis: Code(s): N13.30 - Unspecified hydronephrosis Qualifiers: Hydronephrosis type: with renal calculous obstruction Qualified Code(s): N13.2 - Hydronephrosis with renal and ureteral calculous obstruction Plan I have discussed further evaluation with ureteroscopy stent removal possible laser lithotripsy. Will start vitamin B6 100 mg daily. Patient encouraged to increase her water intake. Orders: Orders AMB Urinalysis Automated Today R33.9 - Retention of urine, unspecified Medications: New phenazopyridine (Pyridium) 200 mg PO Q8H 20 tabs 0RF pyridoxine (vitamin B6) 100 mg PO DAILY 90 tabs 3RF Discontinued cefuroxime axetil Discontinued Reason: Patient Completed Course 500 mg PO Q12H 4 days 8 tabs 0RF phenazopyridine (Pyridium) Discontinued Reason: Patient Refused 100 mg PO Q8H PRN 9 tabs 0RF pain solifenacin (Vesicare) Discontinued Reason: Patient Refused 5 mg PO DAILY 14 tabs 0RF Coding Level of Care Code Est Pt Level 4 (14364) Diagnoses Flank pain R10.9 Ureteral stone N20.1 Obstructed, uropathy N13.9 Hydronephrosis with urinary obstruction due to renal calculus N13.2 Hydronephrosis type: with renal calculous obstruction
== END 2024-01-10 15:09 | disposition home or self-care (01) ==
PROVIDERS: PCP Internal Medicine; Visit Provider Urology
DX: R10.9 Unspecified abdominal pain (principal); N13.2 Hydronephrosis with renal and ureteral calculous obstruction; N13.9 Obstructive and reflux uropathy, unspecified; R33.9 Retention of urine, unspecified
CPT/HCPCS: 99214

== ENCOUNTER 2024-01-11 14:33 | Day surgery (SDC) | payer OTHER, SELFPAY ==
[2024-01-11] VITALS (7 sets, daily range): BP systolic 129–159; BP diastolic 80–94; PULSE 58–103; RESP 0–18; TEMP 36.2–37.1; O2SAT 95–100; BMI 31.6
--- NOTE | ~2024-01-11 | FL_ITS ---
EXAMINATION: XR FLUOROSCOPY WITH IMAGES CLINICAL INFORMATION: Cystoscopy. COMPARISON: Fluoroscopy dated 12/21/2023; CT abdomen and pelvis dated 12/21/2023. TECHNIQUE: Fluoroscopy Supervised By: Dr. Soliz. Fluoroscopy Time: 4.8 seconds. Cumulative Dose: 0.7691 mGy. DAP: 0.3345 Gycm2. Images: 1. FINDINGS: The single submitted image shows a guidewire overlapping the right lower abdomen and pelvis. A left hip arthroplasty is noted. FL/FL guidance in OR IMPRESSION: Intraoperative fluoroscopic guidance is provided during cystoscopy. Please see the patient's Operative Report for full procedural details.
[2024-01-11] MEDS: Lactated Ringers 1,000 ML 50 ML IVCONT (15:14)
--- NOTE | 2024-01-11 15:15 | MHC.SHP ---
Pre-Procedural Eval Section A - 24 Hr Update-Section A only Date of Service: 01/11/24 The patient is an INPATIENT: No The patient has been examined within 24 hours of the surgical procedure. The History & Physical has been completed within 30 days and I have reviewed it.: Yes Section B - Complete if H&P > 30 days Chief Complaint: right ureteral stone Allergies: Allergies Allergy/AdvReac Type Severity Reaction Status Date / Time Sulfa (Sulfonamide Allergy Unknown ITCHY Verified 01/10/24 14:23 Antibiotics) [SULFA (SULFONAMIDE ANTIBIOTICS)] sulfacetamide Allergy Unknown Unknown Verified 01/10/24 14:23 Plan Diagnosis/Plan: Unchanged I have reviewed the history and physical and performed a pertinent physical examination on my patient. No changes have occurred unless specified. Plan for Cystoscopy, right ureteroscopy, possible laser lithotripsy, possible ureteral stent exchange versus removal. Risks discussed included but not limited to, possible need to repeat procedure if stone is not completely fragmented, Irritative voiding symptoms, bladder spasms, urgency, blood in urine. Time Spent With Patient Time: Total time managing care of this patient today ____ minutes.
--- NOTE | 2024-01-11 15:16 | HO.ANESPROP2 ---
FORMERLY [facility], [facility] Active Problems Active Problems: All Active Problems Pulmonary edema (Acute) Acute hypoxic respiratory failure (Acute) Hydronephrosis (Acute) Ureteral stone (Acute) Obstructed, uropathy (Acute) Past Medical History Medical History Menopause Family History Family history of problems with anesthesia: No Surgical History Surgical History History of total bilateral knee replacement Hx of section Hx of colonoscopy History of total left hip replacement History of Problems with Anesthesia: No Social History Social History Alcohol intake: current Alcohol intake frequency: a few times a week Patient Tobacco Use Status: Former Tobacco user Quit Date: 2002 Second Hand Smoke Exposure: No Use of substances other than those prescribed or required for medical reasons: No Are you DNR?: No Advance Directives: No Advance Directives Information Provided: Yes Advance Directives Date on File: 12/21/23 service: No Meds Allergies Allergy/AdvReac Type Severity Reaction Status Date / Time Sulfa (Sulfonamide Allergy Unknown ITCHY Verified 01/10/24 14:23 Antibiotics) [SULFA (SULFONAMIDE ANTIBIOTICS)] sulfacetamide Allergy Unknown Unknown Verified 01/10/24 14:23 Active Medications: Current Medications Lactated Ringer's (Lr) 1,000 mls @ 50 mls/hr IVCONT .Q20H ERENDIRA Last Admin: 01/11/24 15:14 Dose: 50 mls/hr Cefazolin Sodium/Dextrose (Ancef) 2 gm in 50 mls @ 100 mls/hr IV PREOP ONE Stop: 01/11/24 15:42 Home Medications ?Medication ?Instructions ?Recorded ?Confirmed ?Last Taken ?Type acetaminophen 650 mg 1,300 mg PO Q12H PRN Pain (Scale 12/21/23 01/10/24 Unknown History tablet,extended release Score 1-3) cholecalciferol (vitamin D3) 50 50 mcg PO DAILY 12/21/23 01/10/24 Unknown History mcg (2,000 unit) tablet (Vitamin D3) meloxicam 15 mg tablet 15 mg PO DAILY PRN Moderate Pain 12/21/23 01/10/24 Unknown History (Scale Score 5-6) Exam Height,Weight and Vital Signs: Height 4 ft 7 in Weight 61.689 kg Last Vital Signs Temp 97.4 F 01/11/24 15:05 Pulse 103 H 01/11/24 15:05 Resp 18 01/11/24 15:05 BP 129/81 01/11/24 15:05 Pulse Ox 95 01/11/24 15:05 O2 Del Method Room Air 01/11/24 15:05 Airway Mallampati Class: II TM Dist: >3cm Neck ROM: Full Loose/Missing/Broken Teeth: No Heart: rrr Lungs: cta b/l Assessment and Plan Final Anesthetic Review Family History of Problems with Anesthesia: No History of Problems with Anesthesia: No NPO: Yes ASA Class: II Final Preanesthetic Review: No Changes in Pt Med Stat, Meds/Allgs Chart Reviewed, Consent Obtained/Reviewed and Anes Risks/Benef Reviewed Patient Risk: Intermediate Procedure Risk: Intermediate Anesthetic Plan Anesthetic Plan: GA Disposition: Standard PACU
--- NOTE | 2024-01-11 16:44 | P.OP_ITS ---
Operative Note Operative Note Date of Service: 01/11/24 Narrative: PreOperative Diagnosis:?? Right ureteral stone, right hydronephrosis, status post right ureteral stent Post Operative Diagnosis:?? Right ureteral stone Procedure: Cystoscopy, Right ureteroscopy laser lithotripsy stone, stone extraction stent removal Surgeon:?Dr Ari Soliz Anesthesia:? General Indications for procedure: Here for stone fragmentation. Procedure: After informed consent was verified the patient was brought to the operating placed on the OR table in supine position.? General Anesthesia was administered per protocol.? The patient was carefully placed in limited lithotomy position, due limited mobility due to prior hip and knee surgeries, prepped and draped in the usual sterile fashion.? Safety pause time-out and side of surgery confirmed.? Antibiotics confirmed. A 22 Amharic cystoscope was inserted transurethrally. The bladder was visualized.? Both ureteric orifices were in normal position. The right ureteral stent was curled in the bladder. The? distal end of the ureteral stent was grasped with the flexible grasping forceps. The stent was pulled retrograde through the urethra. A guidewire was passed through the stent. The cystoscope was removed, leaving the guidewire in place. The guidewire was used as the safety and was attached to the draping. The semi rigid uret eroscope was passed transurethrally to the level of the stone in the distal ureter. Laser lithotripsy of the stone was done using the 365 fiber with the dusting settings 0.5 J by 20 hertz. There was good fragmentation of the stone. The 0 degree basket was used to remove the stone fragments, which were sent for analysis. The ureteroscope was removed. The bladder was drained and the guidewire was removed. The patient tolerated the procedure well and was brought to the recovery room in stable condition. Complications: None Drains: none
[2024-01-11] MEDS: Phenazopyridine HCL 100 MG TABLET PO (16:59)
[2024-01-11] MEDS: hydrOXYzine HCL 10 MG TABLET PO (16:59)
[2024-01-23 23:35] LABS: Stone Source URETERAL STONE
== END 2024-01-11 17:30 | disposition home or self-care (01) ==
PROVIDERS: PCP Internal Medicine; Visit Provider Urology
PROC: (CPT 52353; principal; 2024-01-11 14:10)
DX: N20.1 Calculus of ureter (principal); Z46.6 Encounter for fitting and adjustment of urinary device; Z96.653 Presence of artificial knee joint, bilateral; Z96.642 Presence of left artificial hip joint; Z79.899 Other long term (current) drug therapy; Z88.2 Allergy status to sulfonamides; Z87.891 Personal history of nicotine dependence
CPT/HCPCS: 52353; 82365; 88300; C1769; J0690; J1596; J1885; J2250; J2704; J3010; Q9967

== ENCOUNTER → 2024-01-11 14:33 | Outpatient (BNV) | payer OTHER, SELFPAY | PROVIDERS: PCP Internal Medicine; Visit Provider Urology | DX: N20.1 Calculus of ureter (principal) | CPT/HCPCS: 52353 ==

== ENCOUNTER 2024-04-03 10:34 | Emergency (ER) | payer OTHER, SELFPAY ==
--- NOTE | ~2024-04-03 | XR_ITS ---
EXAMINATION: XR CHEST CLINICAL INFORMATION: Chest pain COMPARISON: Chest x-ray on 12/22/2023 TECHNIQUE: 2 views of the chest were obtained. FINDINGS: vascularity. LUNGS: Lungs are clear. No pneumothorax is seen. BONES: Bony skeleton is intact. XR/XR chest 2V IMPRESSION: Normal chest x-ray. Interval resolution of vascular congestion and interstitial infiltrates, right minor fissure loculated pleural effusion.
--- NOTE | 2024-04-03 10:35 | ECG_ITS ---
Test Reason : CP Blood Pressure : / mmHG Vent. Rate : 081 BPM Atrial Rate : 081 BPM P-R Int : 140 ms QRS Dur : 068 ms QT Int : 380 ms P-R-T Axes : 031 002 029 degrees QTc Int : 441 ms Normal sinus rhythm Minimal voltage criteria for LVH, may be normal variant ( R in aVL ) Borderline ECG When compared with ECG of 22-DEC-2023 09:49, Premature ventricular complexes are no longer Present Nonspecific T wave abnormality no longer evident in Lateral leads Referred By: Generic ED Physician Electronically Signed By:CORNELIO LOZOYA
[2024-04-03 10:52] VITALS: BP 143/72; PULSE 79; RESP 16; TEMP 36.6; O2SAT 96; BMI 31.6
[2024-04-03 11:41] LABS: MANUAL DIFF FLAG NO
[2024-04-03 11:44] LABS: Basophils Absolute Auto 0.1 X10*3/uL (0.0-0.2); Basophils Percent Auto 0.7 % (0-2); Eosinophils Absolute Auto 0.3 X10*3/uL (0.0-0.4); Eosinophils Percent Auto 4.9 % (0-4); Hematocrit 42.8 % (37.0-47.0); Hemoglobin 14.3 g/dl (12.0-16.0); Imm Gran Abs Auto 0.02 X10*3/uL (0.00-0.03); Imm Gran Pct Auto 0.3 % (0.0-0.4); Lymphocytes Percent Auto 28.5 % (20-40); Mean Corpuscular HGB Conc 33.4 g/dl (31.0-35.0); Mean Corpuscular Hemoglobin 29.9 pg (27.0-33.0); Mean Corpuscular Volume 89.5 fL (80.0-98.0); Mean Platelet Volume 9.5 fL (9.4-12.3); Monocytes Absolute Auto 0.5 X10*3/uL (0.1-1.2); Monocytes Percent Auto 7.5 % (2-11); Neutrophils Percent Auto 58.1 % (45-73); Platelet Count 290 X10*3/uL (160-400); Red Blood Count 4.78 X10*6/uL (4.20-5.50); Red Cell Distribution Width 13.2 % (11.0-16.0); White Blood Count 6.9 X10*3/uL (4.8-10.8)
[2024-04-03 11:58] LABS: Alanine Aminotransferase 30 U/L (0-31); Albumin Level 4.4 g/dL (3.5-5.0); Alkaline Phosphatase 116 U/L (39-117); Anion Gap 13 (12-20); Aspartate Amino Transferase 23 U/L (5-31); Bilirubin Total 0.6 mg/dL (0.0-1.0); Blood Urea Nitrogen 10 mg/dL (9-16); Calcium 10.2 mg/dL (8.4-10.2); Carbon Dioxide 27 mmol/L (22-29); Chloride 107 mmol/L (96-108); Creatinine Clr Calc Pharmacy 78.9; Estimated Glomerular Filt Rate > 60; Glucose Random 105 mg/dL (60-115); Potassium 4.5 mmol/L (3.3-5.1); Sodium 142 mmol/L (135-145); Total Protein 7.9 g/dL (6.5-8.0)
[2024-04-03 12:05] LABS: Troponin-I High Sensitivity < 2.7 ng/L (<3.5-17.0)
[2024-04-03 14:15] VITALS: BP 156/75; PULSE 67; RESP 16; TEMP 37; O2SAT 100
--- NOTE | 2024-04-03 14:20 | ED.CHESTPAIN ---
HPI - Chest Pain General Chief Complaint: Chest Pain Stated Complaint: chest pain Time Seen by Provider: 04/03/24 17:20 Source: patient Mode of arrival: ambulatory Limitations: no limitations History of Present Illness ED Provider: Pavithra Call PA-C HPI narrative: Patient is a 53 year old assigned female at with a history of pulmonary edema presenting to the emergency department today with chest pain that is worse with movement. Patient states that 3 days ago she was moving some things and after that, continued to have central chest pain that was worse with movement. Patient denies any dizziness, lightheadedness, abdominal pain, nausea, vomiting, fever, chills, blurry vision, double vision, loss of vision, difficulty breathing, shortness of breath, back pain, night sweats, pain with urination, increased urinary frequency, increased urinary urgency, blood in her urine or stool, syncope or a near syncopal episode, recent trauma or falls, bowel incontinence, bladder incontinence, or any other complaints at this time. Onset (ago): day(s) (3) Severity: mild Quality: dull Exacerbating factors: movement Related Data Home Medications ?Medication ?Instructions ?Recorded ?Confirmed acetaminophen 650 mg 1,300 mg PO Q12H PRN Pain (Scale 12/21/23 01/10/24 tablet,extended release Score 1-3) cholecalciferol (vitamin D3) 50 50 mcg PO DAILY 12/21/23 01/10/24 mcg (2,000 unit) tablet (Vitamin D3) meloxicam 15 mg tablet 15 mg PO DAILY PRN Moderate Pain 12/21/23 01/10/24 (Scale Score 5-6) Previous Rx's ?Medication ?Instructions ?Recorded phenazopyridine 200 mg tablet 200 mg PO Q8H #20 tabs 01/10/24 (Pyridium) pyridoxine (vitamin B6) 100 mg 100 mg PO DAILY #90 tabs 01/10/24 tablet oxycodone-acetaminophen 5 mg-325 1 tab PO .q6h-8h PRN pain #8 tabs 01/11/24 mg tablet (Percocet) cyclobenzaprine 5 mg tablet 5 mg PO TID PRN muscle spasm 7 04/03/24 days #21 tabs omeprazole 40 mg capsule,delayed 40 mg PO DAILY #14 caps 04/03/24 release Allergies Allergy/AdvReac Type Severity Reaction Status Date / Time Sulfa (Sulfonamide Allergy Unknown ITCHY Verified 04/03/24 10:56 Antibiotics) [SULFA (SULFONAMIDE ANTIBIOTICS)] sulfacetamide Allergy Unknown Unknown Verified 04/03/24 10:56 Review of Systems Constitutional: Constitutional: Reports no additional constitutional complaints, Denies chills, Denies fever(s) and Denies night sweats Eyes: Eyes: Reports no additional eye complaints, Denies blurry vision, Denies change in vision, Denies diplopia, Denies eye discharge, Denies loss of vision and Denies eye pain ENT: Denies dizziness Cardiovascular: Cardiovascular: Reports no additional cardiovascular complaints, Reports chest pain, Denies lightheadedness, Denies Loss of Consciousness and Denies dyspnea Respiratory: Respiratory: Reports no additional respiratory complaints and Denies dyspnea Gastrointestinal: Gastrointestinal: Reports no additional gastrointestinal complaints, Denies abdominal pain, Denies melena, Denies hematochezia, Denies change in bowel habits and Denies change in stool character Genitourinary: Genitourinary: Denies hematuria, Denies urinary frequency, Denies dysuria, Denies urinary incontinence, Denies urinary hesitancy and Denies urinary urgency Musculoskeletal: Musculoskeletal: Reports no additional musculoskeletal complaints, Denies numbness and Denies tingling Neurologic: Denies dizziness, Denies loss of vision, Denies numbness and Denies tingling Psychiatric: Psychiatric: Reports no additional psychiatric complaints Endocrine: Endocrine: Reports no additional endocrine complaints Hematologic/Lymphatic: Hematologic/Lymphatic: Reports no additional hematologic/lymphatic complaints Allergic/Immunologic: Allergic/Immunologic: Reports no additional allergic/immunologic complaints [facility] Past Medical History Attestation statement: The following information was validated with the patient. Source: old records reviewed and nursing notes reviewed Medical History Menopause Surgical History History of total bilateral knee replacement Hx of section Hx of colonoscopy History of total left hip replacement Social History Social History Alcohol intake: current Alcohol intake frequency: a few times a week Patient Tobacco Use Status: Former Tobacco user Second Hand Smoke Exposure: No Advance Directives: Yes Advance Directives on File: Yes Advance Directives Date on File: 12/21/23 Do you have a plan to hurt others: No Plan service: No Physical Exam Vital Signs: Vital Signs: Last Vital Signs Temp 98.6 F 04/03/24 14:15 Pulse 67 04/03/24 14:15 Resp 16 04/03/24 14:15 BP 156/75 H 04/03/24 14:15 Pulse Ox 100 04/03/24 14:15 O2 Del Method Room Air 04/03/24 14:15 BMI result Body Mass Index 31.6 Const: General: cooperative, no acute distress, alert and awake Nutritional Appearance: well nourished Orientation/consciousness: patient oriented x3 Limitations: no limitations HEENT: Head: Yes normal to inspection and Yes atraumatic Ears: hearing grossly normal bilaterally and external ears normal General nose exam: Normal external nose present, no nasal discharge noted and no epistaxis Face and sinus: Yes normal facial exam, No abrasion and No laceration Mouth: Normal oral and palatal mucosa present, no drooling and no muffled voice Eyes: General: appearance normal, both eyes and all related structures Periorbital: periorbital findings normal Eyelids: Yes eyelids normal Conjunctivae: conjunctivae normal Pupils: Equal, round and reactive pupils present EOM: EOMs intact bilaterally Neck: Neck: Yes normal visual inspection, Yes full ROM and Yes no lymphadenopathy Chest: Chest palpation & inspection: normal inspection of the chest Resp: Effort & Inspection: normal respiratory effort and able to speak in complete sentences Cardio: Rate: regular rate Rhythm: regular rhythm GI: Inspection: Yes normal to inspection Neuro: General: patient oriented x3 and moves all extremities Cranial nerves: Yes Equal, round and reactive pupils present Cognition (Neuro): normal cognition Motor exam (neuro): 5/5 motor strength present throughout Sensory Exam: Normal double simultaneous stimulation for sensation Coordination: [id number] test normal Extrem: General: Yes normal to inspection, Yes full ROM and Yes capillary refill normal Psych: Appearance: grossly normal Mental Status: mental status grossly normal Affect: normal affect Attitude: cooperative Thought process: Normal thought process present Thought content: Normal thought content present Insight: Good insight present (Psych) Course Course Course Narrative: RME performed by Pavithra Call PA-C. Patient is a 53 year old assigned female at presenting to the emergency department with chest pain. Patient states she strained herself climbing onto a car a few days ago and is now having central chest pain. 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 EKG, labs, and imaging ordered. Patient placed back in the waiting room pending room availability and results. Medical Decision Making Medical Decision Making [facility] Narrative: Patient is a 53 year old assigned female at with a history of pulmonary edema presenting to the emergency department today with chest pain worse with movement. Patient's physical exam was unremarkable. Patient's blood work was unremarkable. Patient's EKG was unremarkable. Patient's chest x-ray showed no acute process. I explained my physical exam findings as well as all test results to the patient. I answered all questions asked by the patient. I stressed the importance of the patient taking her medication as directed (either prescribed or as the over the counter packaging recommends). I stressed the importance of the patient following up with her primary care provider. I stressed the importance of the patient returning to the emergency department immediately if her symptoms were to worsen or if she were to develop any dizziness, shortness of breath, difficulty breathing, chest pain, blurry vision, loss of vision, nausea, vomiting, abdominal pain, fever, chills, back pain, or any other complaints. Patient verbalized agreement and understanding with this treatment plan and discharge. Differential Diagnosis Differential Diagnoses: The differential diagnosis associated with the presentation includes NSTEMI STEMI Chest pain GERD Muscle spasm Muscle strain Muscle sprain Admission/Observation Consideration of admission/observation: Escalation of care including admission/observation considered Patient would have been admitted to the hospital had her work up had any findings where hospital admission was appropriate and her clinical presentation warranted hospital admission. Lab Data [facility] Lab Attestation statement: I reviewed the patient's lab results. My interpretation of these results are in the [facility] Rationale portion of this note. 04/03/24 11:38 04/03/24 11:38 Labs: Lab Results 04/03/24 04/03/24 Range/Units 11:38 14:30 WBC 6.9 (4.8-10.8) X10*3/uL RBC 4.78 (4.20-5.50) X10*6/uL Hgb 14.3 (12.0-16.0) g/dl Hct 42.8 (37.0-47.0) % MCV 89.5 (80.0-98.0) fL MCH 29.9 (27.0-33.0) pg MCHC 33.4 (31.0-35.0) g/dl RDW 13.2 (11.0-16.0) % Plt Count 290 (160-400) X10*3/uL MPV 9.5 (9.4-12.3) fL Immature Gran % (Auto) 0.3 (0.0-0.4) % Neut % (Auto) 58.1 (45-73) % Lymph % (Auto) 28.5 (20-40) % [place] % (Auto) 7.5 (2-11) % Eos % (Auto) 4.9 H (0-4) % Baso % (Auto) 0.7 (0-2) % Lymph # (Auto) 2.0 (1.2-4.9) X10*3/uL [place] # (Auto) 0.5 (0.1-1.2) X10*3/uL Eos # (Auto) 0.3 (0.0-0.4) X10*3/uL Baso # (Auto) 0.1 (0.0-0.2) X10*3/uL Abs Immat Gran (auto) 0.02 (0.00-0.03) X10*3/uL Absolute Neuts (auto) 4.0 (2.0-8.3) x10*3/uL Absolute Nucleated RBC 0.000 (0.0-0.012) X10*3/uL Nucleated RBC % (auto) 0.0 (0.0-0.2) /100WBC Sodium 142 (135-145) mmol/L Potassium 4.5 D (3.3-5.1) mmol/L Chloride 107 (96-108) mmol/L Carbon Dioxide 27 (22-29) mmol/L Anion Gap 13 (12-20) BUN 10 (9-16) mg/dL Creatinine 0.58 (0.5-1.4) mg/dL Estim Creat Clear Calc 78.9 Estimated GFR > 60 Random Glucose 105 (60-115) mg/dL Calcium 10.2 D (8.4-10.2) mg/dL Total Bilirubin 0.6 (0.0-1.0) mg/dL AST 23 (5-31) U/L ALT 30 (0-31) U/L Alkaline Phosphatase 116 (39-117) U/L Troponin I High Sens < 2.7 < 2.7 (<3.5-17.0) ng/L Total Protein 7.9 (6.5-8.0) g/dL Albumin 4.4 (3.5-5.0) g/dL Independent Interpretation I performed an independent interpretation of an: EKG and Plain X-Ray Interpretation: My interpretation is in agreement with the radiologist's impression of this imaging study. EXAMINATION: XR CHEST CLINICAL INFORMATION: Chest pain COMPARISON: Chest x-ray on 12/22/2023 TECHNIQUE: 2 views of the chest were obtained. FINDINGS: vascularity. LUNGS: Lungs are clear. No pneumothorax is seen. BONES: Bony skeleton is intact. XR/XR chest 2V IMPRESSION: Normal chest x-ray. Interval resolution of vascular congestion and interstitial infiltrates, right minor fissure loculated pleural effusion. Dictated By: Jasmin Barrientos Signed By: Electronically signed by Jasmin Barrientos 04/03/24 1417 Vent. Rate: 081 BPM Atrial Rate: 081 BPM P-R Int: 140 ms QRS Dur: 068 ms QT Int: 380 ms P-R-T Axes: 031 002 029 degrees QTc Int: 441 ms Normal sinus rhythm Minimal voltage criteria for LVH, may be normal variant (R in aVL) Borderline ECG When compared with ECG of 22-DEC-2023 09:49, Premature ventricular complexes are no longer Present Nonspecific T wave abnormality no longer evident in Lateral leads DD/ [id number] Radiology Impression Discussion of test interpretation with radiology: I have reviewed the radiologist's reading. Discharge Plan Discharge Clinical Impression: Muscle spasm, GERD (gastroesophageal reflux disease) Patient Disposition: Home, Self-Care Instructions: Gastroesophageal Reflux Disease (DC), Muscle Spasm (ED) Additional Instructions: Follow up with your primary care provider. Return to the emergency department immediately if your symptoms worsen or if you develop any dizziness, shortness of breath, difficulty breathing, chest pain, blurry vision, loss of vision, nausea, vomiting, abdominal pain, fever, chills, back pain, or any other complaints. Prescriptions: New cyclobenzaprine 5 mg tablet 5 mg PO TID PRN (Reason: muscle spasm) 7 Days Qty: 21 0RF omeprazole 40 mg capsule,delayed release(DR/EC) 40 mg PO DAILY Qty: 14 0RF No Action meloxicam 15 mg tablet 15 mg PO DAILY PRN (Reason: Moderate Pain (Scale Score 5-6)) acetaminophen 650 mg tablet extended release 1,300 mg PO Q12H PRN (Reason: Pain (Scale Score 1-3)) cholecalciferol (vitamin D3) [Vitamin D3] 50 mcg (2,000 unit) tablet 50 mcg PO DAILY oxycodone-acetaminophen [Percocet] 5-325 mg tablet 1 tab PO .q6h-8h PRN (Reason: pain) Qty: 8 0RF Rx Instructions: Partial Fill upon patient request. pyridoxine (vitamin B6) 100 mg tablet 100 mg PO DAILY Qty: 90 3RF phenazopyridine [Pyridium] 200 mg tablet 200 mg PO Q8H Qty: 20 0RF Referrals: Erin Suarez MD [Primary Care Provider] - Stand Alone Forms: Work/School Release Discharge Date/Time: 04/03/24 17:30 Print Language: Gambian
[2024-04-03 15:01] LABS: Troponin-I High Sensitivity < 2.7 ng/L (<3.5-17.0)
== END 2024-04-03 17:30 | disposition home or self-care (01) ==
PROVIDERS: Physician Assistant Medical; Emergency Provider Internal Medicine; PCP Internal Medicine
DX: R07.89 Other chest pain (principal); K21.9 Gastro-esophageal reflux disease without esophagitis; M62.830 Muscle spasm of back; Z79.899 Other long term (current) drug therapy
CPT/HCPCS: 36415; 71046; 80053; 84484; 85025; 93005; 99283

== ENCOUNTER → 2024-04-03 10:35 | Outpatient (BNV) | payer OTHER, SELFPAY | PROVIDERS: Emergency Provider Internal Medicine; PCP Internal Medicine; Visit Provider Internal Medicine | DX: R07.9 Chest pain, unspecified (principal); R94.31 Abnormal electrocardiogram [ECG] [EKG] | CPT/HCPCS: 93010 ==

== ENCOUNTER 2024-07-21 23:22 | Emergency (ER) | payer OTHER, SELFPAY ==
--- NOTE | ~2024-07-21 | XR_ITS ---
EXAMINATION: XR SHOULDER, LEFT CLINICAL INFORMATION: Fall. Pain. COMPARISON: None available. TECHNIQUE: Two views of the left shoulder. FINDINGS: There is a comminuted fracture of the proximal humerus with a dominant component at the greater tuberosity laterally. A transverse component is suspected at the junction of the head and neck. Bones are osteopenic. Acromioclavicular joint is normal. Mild glenohumeral osteoarthritis XR/XR shoulder LT min 2V IMPRESSION: Comminuted fracture of the proximal humerus at the greater tuberosity with a probable transverse humeral neck component. Electronically signed by: Daron Henson MD 07/22/2024 12:50 AM EDT
[2024-07-21 23:24] VITALS: BP 136/84; PULSE 88
[2024-07-21 23:30] VITALS: BP 137/66; PULSE 89; RESP 18; TEMP 36.8; O2SAT 99; BMI 33.3
[2024-07-21] MEDS: oxyCODONE HCl Immed Release 5 MG TABLET PO (23:42)
--- NOTE | 2024-07-22 01:11 | ED.FALL ---
HPI - Fall General Chief Complaint: Fall Stated Complaint: Fall +HS, shoulder pain, too painful for collar Time Seen by Provider: 07/21/24 23:30 Source: patient and EMS Mode of arrival: EMS Limitations: no limitations History of Present Illness ED Provider: Dr. Thelma Segura HPI Narrative: Patient comes to the emergency room complaining of a fall. Patient states that she landed on her left shoulder. Patient states that she was walking in her kitchen, states that she was wearing shoes, 1 of them got stuck to the floor or did not lift up her foot high enough, and tripped. Patient states that she landed against the cabinets of the kitchen sink and hit [place] with the left shoulder. Patient did not hit her head and did not lose consciousness, denies being on blood thinners. Patient called 911. Related Data Home Medications ?Medication ?Instructions ?Recorded ?Confirmed acetaminophen 650 mg 1,300 mg PO Q12H PRN Pain (Scale 12/21/23 01/10/24 tablet,extended release Score 1-3) cholecalciferol (vitamin D3) 50 50 mcg PO DAILY 12/21/23 01/10/24 mcg (2,000 unit) tablet (Vitamin D3) meloxicam 15 mg tablet 15 mg PO DAILY PRN Moderate Pain 12/21/23 01/10/24 (Scale Score 5-6) Previous Rx's ?Medication ?Instructions ?Recorded phenazopyridine 200 mg tablet 200 mg PO Q8H #20 tabs 01/10/24 (Pyridium) pyridoxine (vitamin B6) 100 mg 100 mg PO DAILY #90 tabs 01/10/24 tablet oxycodone-acetaminophen 5 mg-325 1 tab PO .q6h-8h PRN pain #8 tabs 01/11/24 mg tablet (Percocet) cyclobenzaprine 5 mg tablet 5 mg PO TID PRN muscle spasm 7 04/03/24 days #21 tabs omeprazole 40 mg capsule,delayed 40 mg PO DAILY #14 caps 04/03/24 release ibuprofen 600 mg tablet 600 mg PO TID PRN fever or pain 07/22/24 #20 tabs oxycodone 5 mg tablet 5 mg PO BID PRN pain #8 tabs 07/22/24 Allergies Allergy/AdvReac Type Severity Reaction Status Date / Time Sulfa (Sulfonamide Allergy Unknown ITCHY Verified 07/21/24 23:32 Antibiotics) [SULFA (SULFONAMIDE ANTIBIOTICS)] sulfacetamide Allergy Unknown Unknown Verified 07/21/24 23:32 Review of Systems Review of Systems: Constitutional : No Weight loss, No Fever, No Chills, No Night Sweats, No Fatigue, No Malaise ENT/Mouth : No Hearing loss, No Ear Pain, No Nasal Congestion, No Sinus Pain, No Hoarseness, No sore throat, No Rhinorrhea, No Swallowing Difficulty Eyes: No Eye Pain, No Swelling, No Redness, No Foreign Body, No Discharge, No Vision Changes Cardiovascular : No Chest Pain, No SOB, No Dyspnea on Exertion, No Orthopnea, No Edema, No Palpitations Respiratory : No Cough, No Sputum, No Wheezing, No Smoke Exposure, No Dyspnea Gastrointestinal : No Nausea, No Vomiting, No Diarrhea, No Constipation, No abdominal Pain, No Hematochezia, No Melena Genitourinary : no irregular bleeding, No Dysuria, No Urinary Frequency, No Hematuria, No Urinary Incontinence, No Urgency, No Flank Pain, No Urinary Flow Changes, No Hesitancy Musculoskeletal : Complaining of left shoulder pain, No Myalgias, No Joint Swelling Skin : No Skin Lesions, No rash Neuro : No Weakness, No Numbness, No Paresthesias, No Loss of Consciousness, No Dizziness, No Headache Psych : No Anxiety/Panic, No Depression, No SI/HI/AH/VH, No Social Issues, Heme/Lymph: No Bruising, No Bleeding,No Lymphadenopathy Endocrine : No Polyuria, No Polydipsia, No Temperature Intolerance [facility] Past Medical History Medical History Menopause Surgical History History of total bilateral knee replacement Hx of section Hx of colonoscopy History of total left hip replacement Social History Social History Alcohol intake: current Alcohol intake frequency: 0-2 drinks per day Alcohol type: wine Patient Tobacco Use Status: Former Tobacco user Smoked in Last 30 Days: No Second Hand Smoke Exposure: No Use of substances other than those prescribed or required for medical reasons: No Advance Directives: Yes Advance Directives on File: Yes Advance Directives Date on File: 12/21/23 Do you have a plan to hurt others: No Plan Patient : No service: No Physical Exam Vital Signs: Vital Signs: Last Vital Signs Temp 98.2 F 07/21/24 23:30 Pulse 89 07/21/24 23:30 Resp 18 07/21/24 23:30 BP 137/66 07/21/24 23:30 Pulse Ox 99 07/21/24 23:30 O2 Del Method Room Air 07/21/24 23:30 BMI result Body Mass Index 33.3 Const: Other: Appearance: Alert. Oriented X3. No acute distress. Eyes: Pupils equal, round and reactive to light. ENT: Pharynx normal. Neck: Normal inspection. Neck supple. No lymph nodes noted. No crepitus CVS: Normal heart rate and rhythm. Pulses normal. Normal S1 and S2 Respiratory: No respiratory distress. Breath sounds normal. No Wheezing. No rales Abdomen: Soft and nontender. No rigidity. No distention. Skin: Skin warm and dry. Normal skin color. Normal skin turgor. Extremities: No lower extremity edema. Swelling around the shoulder area on the left, patient unable to abduct the arm due to pain. No pain to palpation or movement of the left wrist and elbow. Neuro: Oriented X 3. No motor deficit. No sensory deficit. Moving all extremities. No slurred speech. CN 2 through 12 grossly intact Psych: calm, cooperative, normal affect Medications Administered Discontinued Medications Generic Name Dose Route Start Last Admin Trade Name Freq PRN Reason Stop Dose Admin Oxycodone HCl 5 mg 07/21/24 23:30 07/21/24 23:42 Oxycodone Hcl Immed Release 5 Mg Tablet PO 07/21/24 23:31 5 mg ONCE ONE Administration Medical Decision Making Medical Decision Making [facility] Narrative: My interpretation of x-ray: Fracture of the proximal humerus -patient's arm was put on a sling -patient instructed to follow-up with orthopedics Differential Diagnosis Differential Diagnoses: The differential diagnosis associated with the presentation includes (Humerus fracture, shoulder dislocation, contusion) Independent Interpretation I performed an independent interpretation of an: Plain X-Ray Radiology Impression Discussion of test interpretation with radiology: I have reviewed the radiologist's reading. Radiologist Impression: There is a comminuted fracture of the proximal humerus with a dominant component at the greater tuberosity laterally. A transverse component is suspected at the junction of the head and neck. Bones are osteopenic. Acromioclavicular joint is normal. Mild glenohumeral osteoarthritis XR/XR shoulder LT min 2V IMPRESSION: Comminuted fracture of the proximal humerus at the greater tuberosity with a probable transverse humeral neck component Discharge Plan Discharge Clinical Impression: Fracture of neck of humerus Patient Disposition: Home, Self-Care Instructions: Arm Fracture in Adults (ED) Additional Instructions: Please follow-up with your primary care physician tomorrow. If you have any worsening or new symptoms, please return to the emergency room or call 911 Prescriptions: New ibuprofen 600 mg tablet 600 mg PO TID PRN (Reason: fever or pain) Qty: 20 0RF oxycodone 5 mg tablet 5 mg PO BID PRN (Reason: pain) Qty: 8 0RF Rx Instructions: Partial Fill upon patient request. No Action meloxicam 15 mg tablet 15 mg PO DAILY PRN (Reason: Moderate Pain (Scale Score 5-6)) acetaminophen 650 mg tablet extended release 1,300 mg PO Q12H PRN (Reason: Pain (Scale Score 1-3)) cholecalciferol (vitamin D3) [Vitamin D3] 50 mcg (2,000 unit) tablet 50 mcg PO DAILY oxycodone-acetaminophen [Percocet] 5-325 mg tablet 1 tab PO .q6h-8h PRN (Reason: pain) Qty: 8 0RF Rx Instructions: Partial Fill upon patient request. cyclobenzaprine 5 mg tablet 5 mg PO TID PRN (Reason: muscle spasm) 7 Days Qty: 21 0RF omeprazole 40 mg capsule,delayed release(DR/EC) 40 mg PO DAILY Qty: 14 0RF pyridoxine (vitamin B6) 100 mg tablet 100 mg PO DAILY Qty: 90 3RF phenazopyridine [Pyridium] 200 mg tablet 200 mg PO Q8H Qty: 20 0RF Referrals: Iggy Miner MD [Physician] - 07/24/24 Print Language: Estonian
[2024-07-22 01:20] VITALS: BP 118/62; PULSE 97; RESP 16; TEMP 36.8; O2SAT 98
[2024-07-22 01:27] VITALS: BP 118/62; PULSE 97; RESP 16; TEMP 36.8; O2SAT 98
== END 2024-07-22 01:43 | disposition home or self-care (01) ==
PROVIDERS: Emergency Provider Emergency Medicine
DX: M25.512 Pain in left shoulder (principal); S42.252A Displaced fracture of greater tuberosity of left humerus, initial encounter for closed fracture; W01.198A Fall on same level from slipping, tripping and stumbling with subsequent striking against other object, initial encounter; Y93.89 Activity, other specified; Y92.030 Kitchen in apartment as the place of occurrence of the external cause; Y99.9 Unspecified external cause status
CPT/HCPCS: 73030; 99283; 99284

== ENCOUNTER 2024-08-03 09:34 | Outpatient (REF) | payer OTHER, SELFPAY | END 2024-08-03 09:35 | disposition home or self-care (01) | LOC: HO.HOSX 09:34 | PROVIDERS: Visit Provider Physician Assistant | DX: M25.511 Pain in right shoulder (principal); S42.202A Unspecified fracture of upper end of left humerus, initial encounter for closed fracture | CPT/HCPCS: 73030; 99202 ==

== ENCOUNTER 2024-08-03 10:45 | Outpatient (AMB) | payer OTHER, SELFPAY ==
--- NOTE | 2024-08-03 11:30 | A.OFFVIS_ITS ---
Vital Signs 08/03/24 11:35 Height 4 ft 7 in Weight 143 lb BMI 33.2 Intake Visit Reasons: fc- Comminuted fracture of the proximal humerus Intake Note: Lianexis a 54 year old female who presents today for an ER follow up of left humerus fracture, DOI 07/21/24. Patient reports that she fell causing her to hit a cabinet and land on her left shoulder while at home. She presented to [facility] ER where xrays were taken and placed in a sling. States constant pain that radiates from her humerus to her hand. Current pain level is 8 out of 10. Allergies Sulfa (Sulfonamide Antibiotics) [SULFA (SULFONAMIDE ANTIBIOTICS)] Allergy (Unknown, Verified 08/03/24 11:33) ITCHY sulfacetamide Allergy (Unknown, Verified 08/03/24 11:33) Unknown HPI HPI fc- Comminuted fracture of the proximal humerus: Details: 54-year-old female who presents to the office today for an ER follow-up of left shoulder injury, 07/21/24. She reports she fell at home causing her to hit a cabinet and landed on her left shoulder. She was seen at ER where x-rays were performed and she was placed in a sling. She currently states she has constant pain in her humerus that radiates to her hand. She rates the pain as 8 on the scale of 0-10. 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 Review of Systems Const All systems reviewed & are unremarkable except as noted in HPI and below Physical Exam Vital Signs: BMI result Body Mass Index 33.2 Const General: cooperative, healthy appearing, comfortable, no acute distress, well developed and alert Orientation/consciousness: patient oriented x3 HEENT Head: Yes normal to inspection, Yes normocephalic and Yes atraumatic Eyes General: appearance normal, both eyes and all related structures Resp Effort & Inspection: normal respiratory effort and able to speak in complete sentences Cardio Rate: regular rate Peripheral pulses: Peripheral pulses 2+ throughout GI Palpation (GI): Soft to palpation Skin Lesions: no lesions Rashes: no rashes Neuro General: patient oriented x3 Extrem Other: Left shoulder: Normal to inspection. Diffuse Swelling and tenderness over the proximal humerus which extends down the arm. Anterior deltoid sensation intact. Elbow and wrist ROM intact. NVI. Office Procedures AMB Fracture Care Fracture Billing Code: Fracture Billing Code Results Reviewed Results Reviewed: Xrays were obtained in the office today and personally reviewed by me of the left shoulder show prox humerus fracture Assessment & Plan Assessment & Plan (1) Closed fracture of left proximal humerus: Code(s): S4 - Unspecified fracture of upper end of left humerus, initial encounter for closed fracture Category: Medical Plan I recommend she use the sling for comfort. She can remove for hygiene and to allow for extension of the elbow. I recommend PT for gentle ROM and scap stabilization. She will see me back in 4 weeks with xrays sooner if needed. Orders: Orders 2 PT Evaluation and Treatment Today Myranda Mcginnis PA-C S4 - Unspecified fracture of upper end of left humerus, initial encounter for closed fracture XR shoulder LT min 2V Today Jenniffer Arora PA-C M25.519 - Pain in unspecified shoulder Patient Instructions: Scribed for Myranda Mcginnis PA-C, by Myron John medical policy specialist, on 08/03/2024 at 11:15 AM EST.? I, Myranda Mcginnis PA-C, have personally reviewed and agree with the information entered by the scribe. Coding Level of Care Code New Pt Level 3 (90539) Complex EM visit Add On G2211 Diagnoses Closed fracture of left proximal humerus S4 CPT Codes Fracture Care - Fracture Billing Code: Fracture Billing Code ([id number])
[2024-08-03 11:35] VITALS: BMI 33.2
== END 2024-08-03 12:04 | disposition home or self-care (01) ==
PROVIDERS: Visit Provider Physician Assistant
DX: S42.202A Unspecified fracture of upper end of left humerus, initial encounter for closed fracture (principal)
CPT/HCPCS: 99203; G2211

== ENCOUNTER 2024-09-07 12:58 | Outpatient (REF) | payer OTHER, SELFPAY ==
--- OUTSIDE RECORDS SUMMARY | 2024-09-13 02:17 | XMS_ITS | Continuity of Care Document ---
Author Organization [facility] Address [address] [place] [id number] Care Team Providers Care Pie Maker Name Role Phone HIM CCA OTHER Assessment No assessment recorded. Plan of Treatment Reminders Order Date Submit Date Provider Last Modified By Organization Details Last Modified Time Details Appointments None record ed. Lab None record ed. Referral None record ed. Procedures None record ed. Surgeries None record ed. Imaging None record ed. Medication Orders None record ed. Patient TargetsNo targets recorded. Patient InstructionsNo instructions recorded. Reason for Referral None Reported. Medical Equipment None Reported. Allergies Allergen ID Allergen Name Allergen Category Reaction Reaction Severity Criticality Documentation Date Start Date Code Code System Note Provider Name and Address Organization Details Recorded Time 6644 Substance with sulfonami de structure and antibacte rial mechanism of action (substanc e) medicatio n Not available Not available Not available 07/23/2024 [id number] SNOMED Emelia Lopez MD [address] [place] [address],[address], [place], [phone] [facility] [[email or web address]] [facility] 4 10:47:17 Medications Name Sig Start Date Stop Date Status Note LastModified by Organization Details LastModified Time meloxicam 15 mg tablet TAKE 1 TABLET BY MOUTH DAILY NEEDED FOR MILD PAIN WITH FOOD. DO NOT TAKE W/IBUPROFEN OR NAPROXEN active Not Available Not Available Not Available prednisone 20 mg tablet TAKE 2 TABLETS BY MOUTH EVERY DAY FOR 5 DAYS active Not Available Not Available No t Available acetaminophe n ER 650 mg tablet,exten ded release TAKE 2 TABLETS BY MOUTH EVERY 12 HOURS NEEDED FOR PAIN active Not Available Not Available No t Available phenazopyrid ine 100 mg tablet TAKE 1 TABLET ORALLY EVERY 8 HOURS NEEDED FOR PAIN active Not Available Not Available No t Available diclofenac potassium 50 mg tablet TAKE 1 TABLET BY MOUTH TWICE A DAY X 14 DAYS WITH FOOD AVOID OTHE NSAIDS WHILE ON DICLOFENAC active Not Available Not Available N ot Available hydrocortiso ne 2.5 % topical cream PLEASE SEE ATTACHED FOR DETAILED DIRECTIONS active Not Available Not Available N ot Available pyridoxine (vitamin B6) 100 mg tablet TAKE 1 TABLET BY MOUTH EVERY DAY active Not Available Not Available No t Available ibuprofen 600 mg tablet active Not Available Not Available Not Available cefuroxime axetil 500 mg tablet TAKE 1 TABLET ORALLY EVERY 12 HOURS FOR 4 DAYS active Not Available Not Available No t Available oxycodone 5 mg tablet active Not Available Not Available No t Available solifenacin 5 mg tablet TAKE 1 TABLET BY MOUTH EVERY DAY active Not Available Not Available No t Available cholecalcife rol (vitamin D3) 50 mcg (2,000 unit) tablet TAKE 1 TABLET BY MOUTH EVERY DAY active Not Available Not Available No t Available Vitals Date Recorded Body weight Respiratory rate Heart rate Body height Oxygen saturation Oxygen saturation in Arterial blood by Pulse oximetry Body temperature Systolic blood pressure Diastolic blood pressure Provider Name and Address Organization Details Last Updated DateTime 4 92278.1 04 g 16 /min 97 /min 139.7 cm 98 % 98 % 98.6 [degF] 150 mm[Hg] 96 mm[Hg] Not Available [facility] 4 10:45:05 Social History None recorded. Functional Status None recorded. Mental Status None recorded. Family History Nothing Reported. Medical History No medical history recorded. Gynecological HistoryNo gynecological history recorded. Obstetrics History GPAL:G 0 P 0 0 0 0 Past Encounters Encounter ID Performer Location Encounter Start Date Encounter Closed Date Diagnosis/Indication Diagnosis SNOMED-CT Code Diagnosis ICD10 Code [id number] Emelia Lopez MD [facility] [address] [place] [phone] 07/23/2024 10:45:03 07/25/2024 10:03:10 Pain in left arm 923881210 M79.602 Health Concerns Section Related Observation LastModified by Organization Detai ls LastModified Time None Recorded Concern Status LastModified by Organization Details LastModified Time None Recorded Payers Encounter Date Sequence Insurance Name Policy Number Policy Núñez Covered Member ID Núñez Member ID Guarantor Name 07/23/2024 1 [facility] [employer] - DOS ON OR AFTER 2023 - DUAL ELIGIBLE - SENIOR LIVING OPTIONS AND ONE CARE (MEDICARE REPLACEMENT/ADV ANTAGE - HMO) [place] [id number] [place] Notes Date Note Type Note Provider Name and Address Organization Details Recorded Time 07/23/2024 text/html [facility] Nurse Triage Notes (Gurpreet Savage): Reason For Request: Patient has Arm pain from surgery, and Discharge paper says to elevate it and she can't move her arm, now her whole arm and body has pain, wants help. Chief Complaints: Pain Allergies: Unknown Comments: [employer] verified the Pt.'s name//address and phone number. Education provided on the response time and the Pt. was advised to monitor reported s/s and seek emergency treatment if needed. Pt reports having a fall on Wednesday - Seen in the ER - Left Humerus fx - Increased pain. 07/13 - Pt also reports having a headache - SOB Denies cough/cold and congestion - Denies Chest pain . Denies fever - Denies N/V. ................. ................. ................. ................. ................. ................. ................. ................. ..... Crematorium Operator Note From Benigno Vanessa: [facility] makes pt contact 54 yo F CC of pain.[facility] obtains consent and uploads electronically, Obtains vital signs. PT reportedly fell on wednesday around 10pm and suffered a left side humerus fx. PT was seen at [facility] and discharged yesterday with care instructions. PT is prescribed ibuprofen 600mg 3 times a day and 5mg oxycodone twice a day. PT reports 7/10 at rest after two oxycodone, tylenol, and ibuprofen. PT confirms allergies to sulfa, and denies any kidney issues. PT denies chest pain, sob, n/v.[facility] contacts [facility] and explains above mentioned. [facility] orders 15mg of toradol via IM which is given in the pts right deltoid and bandaged appropriately. PT is instructed to not take anymore ibuprofen today but can resume tomorrow. PT also instructed to call her orthopedic and inform them that the pain management she is currently prescribed isnt sufficient. PT explained red flags such as sudden severe sob, chest pain, new onset fever or n/v to seek a higher level of care such as 911 or the emergency department, pt understands. [facility] clear ................. ................. ................. ................. ................. ................. ................. ................. ..... Disposition: Fulfilled Emelia Lopez MD [address] [place] [address],[address], [place], [phone], [employer] 07/23/2024 11:41:26 OBGyn Episode No OBEpisode recorded.
--- OUTSIDE RECORDS SUMMARY | 2024-09-13 02:17 | XMS_ITS | Data Portability ---
Author Organization [place] [place] [facility] Address [address] [place] [address] Care Team Providers Care Childcare Teacher Name Role Phone HIM CCA OTHER Assessment Encounter Date Assessment Date Assessment LastModified by Organization Details LastModified Time 07/25/2024 07/25/2024 I provided real -time medical direction via phone for this encounter and was available for additional phone-based assistance as needed. I have reviewed and agree with the Assessment and Plan as documented by the Fuel Handler. Patient given the opportunity to ask questions. Our service contacted for an assessment of: Pain management As per above, patient with left femur fracture last week received some pain medications to take until follow-up. Has currently taken this complete prescription and was looking for a refill. Pain is uncontrolled and her functional status has declined significantly. Per companion caregiver on the scene, vital signs are stable. Patient visibly in pain to the point that felt the management should be in the emergency department which I agree with. Impression: Left femur fracture pain Plan: Transport to ED with expect call made. [email or web address] Not available 07/25/2024 16:06:48 Plan of Treatment Reminders Order Date Submit [...] Not available Not available Not available 07/23/2024 [id number] 8000 SNOMED Emelia Lopez MD [address] [facility],[address], [place], [address] [facility] [place] - [employer] 4 10:47:17 Medications Name Sig Start Date [...] Address Organization Details Last Updated DateTime 4 66150.1 04 g 16 /min 97 /min 139.7 cm 98 % 98 % 98.6 [degF] 150 mm[Hg] 96 mm[Hg] Not Available [facility] 4 10:45:05 Date Recorded Respiratory rate Oxygen saturation Oxygen saturation in Arterial blood by Pulse oximetry Heart rate Systolic blood pressure Diastolic blood pressure Provider Name and Address Organization Details Last Updated DateTime 4 24 /min 98 % 98 % 98 /min 180 mm[Hg] 100 mm[Hg] Not Available [facility] 16:00:53 Social History None recorded. Functional Status None recorded. Mental Status None recorded. Family History Nothing Reported. Medical History No medical history recorded. Gynecological HistoryNo gynecological history recorded. Obstetrics History GPAL:G 0 P 0 0 0 0 Past Encounters Encounter ID Performer Location Encounter Start Date Encounter Closed Date Diagnosis/Indication Diagnosis SNOMED-CT Code Diagnosis ICD10 Code [id number] Emelia Lopez MD Main - [facility] [address] [place] [id number] 07/23/2024 10:45:03 07/25/2024 10:03:10 Pain in left arm 711996041 M79.602 [id number] [facility] [address] [place] [phone] 07/25/2024 16:00:49 07/25/2024 16:18:18 Pain of left hip joint 6709924941 73392 M25.552 Health Concerns Section Related Observation LastModified by Organization Detai ls LastModified Time None Recorded Concern Status LastModified by Organization Details LastModified Time None Recorded Advance Directives Directive None Recorded Payers Encounter Date Sequence Insurance Name Policy Number Policy Núñez Covered Member ID Núñez Member ID Guarantor Name 07/23/2024 1 [facility] - DOS ON OR AFTER 2023 - DUAL ELIGIBLE - FDC OPTIONS AND ONE CARE (MEDICARE REPLACEMENT/ADV ANTAGE - HMO) [place] [id number] [place] 07/25/2024 1 [facility] - DOS ON OR AFTER 2023 - DUAL ELIGIBLE - FDC OPTIONS AND ONE CARE (MEDICARE REPLACEMENT/ADV ANTAGE - HMO) [place] [id number] [place] Notes Date Note Type Note Provider Name and Address Organization Details Recorded Time 07/23/2024 text/html CRC Nurse Triage Notes (Gurpreet Savage): Reason For Request: Patient has Arm pain from surgery, and Discharge paper says to elevate it and she can't move her arm, now her whole arm and body has pain, wants help. Chief Complaints: Pain Allergies: Unknown Comments: Wire Brush Maker verified the Pt.'s name//address and phone number. [...] pain . Denies fever - Denies N/V. .................. .................. .................. .................. .................. .................. .................. ............... Fuel Handler Note From Benigno Vanessa: [facility] makes pt contact 54 yo F CC of pain.[facility] obtains consent and uploads electronically, Obtains vital signs. PT reportedly fell on wednesday around 10pm and suffered a left side humerus fx. PT was seen at [facility] and discharged yesterday with care instructions. PT is prescribed ibuprofen 600mg 3 times a day and 5mg oxycodone twice a day. PT reports 7/10 at rest after two oxycodone, tylenol, and ibuprofen. PT confirms allergies to sulfa, and denies any kidney issues. PT denies chest pain, sob, n/v.[facility] contacts [facility] and explains above mentioned. [facility] orders 15mg of toradol [...] 911 or the emergency department, pt understands. [facility] clear .................. .................. .................. .................. .................. .................. .................. ............... Disposition: Fulfilled Emelia Lopez MD [address] [facility],[address], [place], [address], [place] 07/23/2024 11:41:26 07/25/2024 text/html CRC Nurse Triage Notes (Katya Chand): Chief Complaints: Pain, Injury PMH: Other Allergies: Trimethoprim-Sulfa methoxazole Comments: Wire Brush Maker verified the member's name//address and phone number. Member is a 54 yr old female, a/o3 PMH >Hip replacement / knee replacement Allergies >Sulfa Pt is calling for pain. She fell on Wednesday. She went to the ER. She has a fx of left femur. She was given a few days of medication. She called her PCP and is awaiting a call back. She is not on any blood thinners/ CKD . She has used cold/ hot compact with no change Education provided on the response time and the member was advised to monitor reported s/s and seek emergency treatment if needed Johanna Cochran MD [address] [facility],[address], [place], [address], [place] 07/25/2024 16:07:00 OBGyn Episode No OBEpisode recorded.
--- OUTSIDE RECORDS SUMMARY | 2024-09-13 02:17 | XMS_ITS | Continuity of Care Document ---
Author Organization [employer] [place] [employer] Address [address] [place] [phone] Care Team Providers Care Flavor Maker Name Role Phone HIM CCA OTHER Assessment Encounter Date Assessment Date Assessment LastModified by Organization Details LastModified Time 07/25/2024 07/25/2024 I provided real -time medical direction via phone for this encounter and was available for additional phone-based assistance as needed. I have reviewed and agree with the Assessment and Plan as documented by the Jammer Hooker. Patient given the opportunity to ask questions. Our service contacted for an assessment of: Pain management As per above, patient with left femur fracture last week received some pain medications to take until follow-up. Has currently taken this complete prescription and was looking for a refill. Pain is uncontrolled and her functional status has declined significantly. Per rock wool applicator on the scene, vital signs are stable. [...] Not available Not available Not available 07/23/2024 [id number] SNOMED Emelia Lopez MD [address] [facility],[address], [place], [address], [facility] 4 10:47:17 Medications Name Sig Start Date [...] Available No t Available Vitals Date Recorded Respiratory rate Oxygen saturation Oxygen saturation in Arterial blood by Pulse oximetry Heart rate Systolic blood pressure Diastolic blood pressure Provider Name and Address Organization Details Last Updated DateTime 4 24 /min 98 % 98 % 98 /min 180 mm[Hg] 100 mm[Hg] Not Available [employer] 4 16:00:53 Social History None recorded. Functional Status None recorded. Mental Status None recorded. Family History Nothing Reported. Medical History No medical history recorded. Gynecological HistoryNo gynecological history recorded. Obstetrics History GPAL:G 0 P 0 0 0 0 Past Encounters Encounter ID Performer Location Encounter Start Date Encounter Closed Date Diagnosis/Indication Diagnosis SNOMED-CT Code Diagnosis ICD10 Code [id number] [facility] [address] [place] [phone] 07/23/2024 10:45:03 07/25/2024 10:03:10 Pain in left arm 402481676 M79.602 [id number] Johanna Cochran MD [facility] - [address] [address] 07/25/2024 16:00:49 07/25/2024 16:18:18 Pain of left hip joint 2495162843 58262 M25.552 Health Concerns Section Related Observation LastModified by Organization Detai ls LastModified Time None Recorded Concern Status LastModified by Organization Details LastModified Time None Recorded Payers Encounter Date Sequence Insurance Name Policy Number Policy Núñez Covered Member ID Núñez Member ID Guarantor Name 07/25/[address] [facility] - DOS ON OR AFTER 2023 - DUAL ELIGIBLE - CARE HOME OPTIONS AND ONE CARE (MEDICARE REPLACEMENT/ADV ANTAGE - HMO) [place] [id number] [place] Notes Date Note Type Note Provider Name and Address Organization Details Recorded Time 07/25/2024 text/html CRC Nurse Triage Notes (Katya Chand): Chief Complaints: Pain, Injury PMH: Other Allergies: Trimethoprim-Sulfa methoxazole Comments: [employer] Eastern Archae[employer] Lecturer verified the member's name//address and phone number. [...] emergency treatment if needed Johanna Cochran MD [address] [place] [address],[address], [place], [address], [employer] 07/25/2024 16:07:00 OBGyn Episode No OBEpisode recorded.
== END 2024-09-07 12:59 | disposition home or self-care (01) ==
LOC: HO.HOSX 12:58
PROVIDERS: Visit Provider Physician Assistant
DX: M25.512 Pain in left shoulder (principal); S42.202A Unspecified fracture of upper end of left humerus, initial encounter for closed fracture
CPT/HCPCS: 73030; 99212

== ENCOUNTER 2024-09-07 14:16 | Outpatient (AMB) | payer OTHER, SELFPAY ==
--- NOTE | 2024-09-07 14:31 | A.OFFVIS_ITS ---
Vital Signs 09/07/24 14:35 Height 4 ft 7 in Weight 143 lb BMI 33.2 Handedness Right Intake Visit Reasons: OV-f/u left prox hum fx w xrays Intake Note: Siomara is a 54 year old female who presents today for a follow up visit for her fracture of left proximal humerus, DOI: 07/21/2024. Patient's first PT visit is booked for 09/18/2024. Patient reports he left arm is feeling much better than her last visit however she still has pain. She expresses an exacerbation of pain when she reaches out with the left arm. Expresses extreme pain in the left elbow and left wrist. Allergies Sulfa (Sulfonamide Antibiotics) [SULFA (SULFONAMIDE ANTIBIOTICS)] Allergy (Unknown, Verified 09/07/24 14:34) ITCHY sulfacetamide Allergy (Unknown, Verified 09/07/24 14:34) Unknown Medication List - Last Reconciled 09/07/24 by Myranda Mcginnis PA-C acetaminophen ER 1,300 mg PO Q12H PRN cholecalciferol (vitamin D3) (Vitamin D3) 50 mcg PO DAILY oxycodone 5 mg PO BID PRN pyridoxine (vitamin B6) 100 mg PO DAILY HPI HPI OV-f/u left prox hum fx w xrays: Details: 54-year-old female who returns to the office today for a follow-up of left shoulder fracture, 07/21/24. She states she has improvement however she continues to have pain in her shoulder. Her pain is aggravated with reaching out with her left arm. She is scheduled for her first physical therapy session on 09/18/24. She also reports she has extreme pain in her left elbow and left wrist. 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 Review of Systems Const All systems reviewed & are unremarkable except as noted in HPI and below Physical Exam Vital Signs: BMI result Body Mass Index 33.2 Const General: cooperative, healthy appearing, comfortable, no acute distress, well developed and alert Orientation/consciousness: patient oriented x3 HEENT Head: Yes normal to inspection, Yes normocephalic and Yes atraumatic Eyes General: appearance normal, both eyes and all related structures Resp Effort & Inspection: normal respiratory effort and able to speak in complete sentences Cardio Rate: regular rate Peripheral pulses: Peripheral pulses 2+ throughout GI Palpation (GI): Soft to palpation Skin Lesions: no lesions Rashes: no rashes Neuro General: patient oriented x3 Extrem Other: Left shoulder: Normal to inspection. Diffuse Swelling and tenderness over the proximal humerus which extends down the arm. Anterior deltoid sensation intact. Elbow and wrist ROM intact. NVI. Results Reviewed Results Reviewed: Xrays were obtained in the office today and personally reviewed by me of the left shoulder show prox humerus fracture Assessment & Plan Assessment & Plan (1) Closed fracture of left proximal humerus: Code(s): S4 - Unspecified fracture of upper end of left humerus, initial encounter for closed fracture Category: Medical Plan She is going to continue working with physical therapy. I did put in a new order to work on scapular stabilization and strengthening. I would like to see her back in 8 weeks with x-rays, sooner if needed. Orders: Orders XR shoulder LT min 2V Today M25.512 - Pain in left shoulder PT Evaluation and Treatment Today S4 - Unspecified fracture of upper end of left humerus, initial encounter for closed fracture Patient Instructions: Scribed for Myranda Mcginnis PA-C, by Myron John medical equipment repair technician, on 09/07/2024 at 2:30 PM EST.? I, Myranda Mcginnis PA-C, have personally reviewed and agree with the information entered by the scribe. Coding Level of Care Code Global (17618) Diagnoses Closed fracture of left proximal humerus S4
[2024-09-07 14:35] VITALS: BMI 33.2
== END 2024-09-07 14:54 | disposition home or self-care (01) ==
PROVIDERS: PCP Internal Medicine; Visit Provider Physician Assistant
DX: S42.202A Unspecified fracture of upper end of left humerus, initial encounter for closed fracture (principal)
CPT/HCPCS: 99213

== ENCOUNTER 2024-10-23 13:03 | Outpatient (RCR) | payer OTHER, SELFPAY ==
--- NOTE | 2024-09-18 17:50 | MHC.PT.EP ---
[facility] [place] Office [place] Office [place] Office [address] [phone] F: [phone] F: [phone] F: [phone] F: [phone] Physical Therapy Plan of Care Date of Evaluation: 09/18/24 Date of Surgery: Diagnosis: Closed fracture of proximal humerus (DOI: 07/21/24) (MD Dx) RS Assessment: Siomara is a 54 yo female who was referred by Myranda Mcginnis PA-C for Dx of closed fx of LEFT proximal humerus (DOI: 07/21/21), NON-operative. Impairments include decreased L shoulder ROM and strength, swelling of L arm, TTP L UT, and pain resulting in their inability to reach overhead, reach behind, or lift objects. She had previous challenges with mobility prior to injury due to hx of bilat TKA surgeries and L DAVIDE with L hip OA present due to hip dysplasia, also possible hx L ulnar nerve decompression due to patient description of surgery. These deficits are impacting their ability to participate in household ADLs; cooking, cleaning, bathing, reaching cabinets, dressing, and putting on earrings. Pt will benefit from skilled PT to address impairments and meet their goals. Frequency and Duration: The patient will be seen 2x/week for 4 weeks Short Term Goals: 2 weeks Patient will be able to perform HEP to independently manage condition. Patient will decrease swelling of L distal humerus (superior to olecranon) to 29 cm. [facility] Goals: 4 weeks Patient will increase shoulder flexion AROM to 90 degrees to be able to reach for objects in front of her. Patient will increase shoulder abduction AROM to 90 degrees to be able to put on shirt independently. Treatment Plan: Modalities to reduce pain, spasms and effusion. Manual therapy to restore motion and function. Therapeutic exercise to improve strength and flexibility. Neuromuscular re-education for posture and balance. Therapeutic activities to return to functional activities of daily living. Electronically signed by: Nakul Arcos, PT, DPT Please sign and return to therapist. Thank you for your referral.
--- NOTE | 2024-10-23 14:56 | MHC.PT.DC ---
[facility] [place] Office [place] Office [place] Office [address] Eddi Gamez [address] [phone] F: [phone] F: [phone] F: [phone] F: [phone] Physical Therapy Discharge Report Diagnosis: Closed fracture of proximal humerus (DOI: 07/21/24) (MD Buckner) RS Date of Surgery: Date of Evaluation: 09/18/24 Date of Discharge: 10/23/24 Treatments to Date: 7 Cancellations to Date: No Shows to Date: Discharge Status: Achieved Goals Improved Function Independent with HEP Discharge Summary: Shannannexis presents with significant improvement in SPADI outcome measure score, improving from 115/130 points to 53/130 points indicating reduction of disability. She also shows improvement in AROM of L shoulder resulting in functional gains with ADLs; now able to wash hair and face and reach to her back pocket. She feels she can manage her sxs with independent HEP. Electronically signed by: Nakul Arcos, PT, DPT Please sign and return to therapist. Thank you for your referral.
== END 2024-10-23 14:56 | disposition home or self-care (01) ==
LOC: HO.PT 13:03
PROVIDERS: PCP Internal Medicine; Visit Provider Physician Assistant
DX: S42.202A Unspecified fracture of upper end of left humerus, initial encounter for closed fracture (principal)
CPT/HCPCS: 97110; 97140; 97162; 97535

== ENCOUNTER 2025-03-05 08:36 | Outpatient (REF) | payer OTHER, SELFPAY ==
--- NOTE | ~2025-03-05 | XR_ITS ---
EXAMINATION: XR SHOULDER 2 OR MORE VIEWS LEFT HISTORY: M25.512 - Pain in left shoulder COMPARISON: Comparison is made with the prior examination dated 09/07/2024. FINDINGS: Two views of the left shoulder are submitted. Osseous mineralization is normal. The previously seen fracture of the surgical neck of the humerus has healed. There is no acute fracture or dislocation. There is mild narrowing of the glenohumeral and acromioclavicular joints. The soft tissues are unremarkable. XR/XR shoulder LT min 2V IMPRESSION: Healed fracture of the surgical neck of the humerus. Mild narrowing of the glenohumeral and acromioclavicular joints. Electronically signed by: Adi Veras MD 03/05/2025 03:34 PM EDT
--- OUTSIDE RECORDS SUMMARY | 2025-03-06 09:01 | XMS_ITS ---
Author Organization [facility] [place] Address [address] [place] [address] Care Team Providers Care Family And Marriage Counsellor Name Role Phone Erin Suarez MD Primary Care Provider Jonathan St Unavailable [phone] Allergies Allergen (clinical drug ingredient) Drug/Non Drug [...] 09/25/2024 Encounters Encounter [facility] Date [facility] [address] [place] [phone] 09/25/2024 Jonathan Savage Plan Of Treatment Next Appt Details Provider Name:Jonathan Savage , 04/11/2025 01:00:00 PM, [address] [place] [address], [place], [phone], Progress Notes * Alba BEACHisDOB: [birth year] (54 yo F)Acc No.[id number]:09/25/2024 Progress Notes Patient:?Siomara BEACH Provider:?Jonathan Savage DPM :1970???Age:54 Y???Sex:Female D ate:09/25/2024 Address:[address] [place] [address], [phone] Pcp:Erin Suarez MD Subjective: * Chief [...] ?Exercise: no. ?Marital status: single. 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 * Medications:?Taking Meloxica m , Taking Vitamin [...] Savage DPM Date:?2023 Generated for Adriana orona/Edmond/Agustina on:?03/06/2025 09:01 AM EDT
== END 2025-03-05 08:37 | disposition home or self-care (01) ==
LOC: HO.HOSX 08:36
PROVIDERS: Visit Provider Physician Assistant
DX: M25.512 Pain in left shoulder (principal); S42.202D Unspecified fracture of upper end of left humerus, subsequent encounter for fracture with routine healing; S16.1XXD Strain of muscle, fascia and tendon at neck level, subsequent encounter; X58.XXXD Exposure to other specified factors, subsequent encounter
CPT/HCPCS: 73030; 99212

== ENCOUNTER 2025-03-05 13:22 | Outpatient (AMB) | payer OTHER, SELFPAY ==
--- NOTE | 2025-03-05 13:51 | A.OFFVIS_ITS ---
Vital Signs 03/05/25 13:56 Height 4 ft 7 in Weight 143 lb BMI 33.2 Intake Visit Reasons: OV-left proximal humerus, DOI: 07/21/2024 Intake Note: Shannannexlefty is a 54 year old female who presents today for a follow up status post left proximal humerus fracture, DOI: 07/21/2024. At her last visit on 09/07/24 she was recommended to continue attending PT and follow up with new x-rays in 8 weeks. Today patient reports that she was doing well however recently her pain returned. States her pain radiates from her humerus up her neck. Difficulty with moving her neck. No numbness or tingling. Denies recent injury. Allergies Sulfa (Sulfonamide Antibiotics) [SULFA (SULFONAMIDE ANTIBIOTICS)] Allergy (Unknown, Verified 03/05/25 14:00) ITCHY sulfacetamide Allergy (Unknown, Verified 03/05/25 14:00) Unknown Medication List - Last Reconciled 03/05/25 by Myranda Mcginnis PA-C acetaminophen ER 1,300 mg PO Q12H PRN cholecalciferol (vitamin D3) (Vitamin D3) 50 mcg PO DAILY meloxicam 15 mg PO DAILY pyridoxine (vitamin B6) 100 mg PO DAILY HPI HPI OV-left proximal humerus, DOI: 07/21/2024: Details: 54-year-old female returns to the office today for pain in the left shoulder which extends into the trap and neck. Her initial date of injury for her proximal humerus fracture was 07/21/2024. She had done physical therapy for this and was doing well up until recently. She complains of pain mainly in the trap which goes into the neck. She has discomfort with rotation of the neck. 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 Review of Systems Const All systems reviewed & are unremarkable except as noted in HPI and below Physical Exam Vital Signs: BMI result Body Mass Index 33.2 Const General: cooperative and no acute distress Orientation/consciousness: patient oriented x3 Resp Effort & Inspection: normal respiratory effort and able to speak in complete sentences Cardio Peripheral pulses: Peripheral pulses 2+ throughout Neuro General: patient oriented x3 Extrem Other: Patient has full range of motion of the shoulder and tenderness to palpation over the trapezium muscle which extends to the lateral aspect of the C-spine. She has pain with right rotation of her neck. Neurovascularly intact. Results Reviewed Results Reviewed: X-rays of the left shoulder obtained in the office today and reviewed by me show healed proximal humerus fracture. Assessment & Plan Assessment & Plan (1) Closed fracture of left proximal humerus: Code(s): S42.A - Unspecified fracture of upper end of left humerus, initial encounter for closed fracture Category: Medical (2) Neck muscle strain: Code(s): S16.1XXA - Strain of muscle, fascia and tendon at neck level, initial encounter Category: Medical Plan Reassurance given to the patient that her proximal humerus fracture is well healed. I feel as though the source of her pain is from her trapezium and neck strain. I encouraged gentle stretching along with heat and ice. She will also begin a course of physical therapy to work on neck and shoulder modalities specifically range of motion scapular stabilization. If symptoms persist she should see physiatry for further evaluation otherwise follow up as needed. Orders: Orders 2 PT Evaluation and Treatment Today S16.1XXA - Strain of muscle, fascia and tendon at neck level, initial encounter, S4A - Unspecified fracture of upper end of left humerus, initial encounter for closed fracture XR shoulder LT min 2V Today M25.512 - Pain in left shoulder Coding Level of Care Code Est Pt Level 3 (92463) Complex EM visit Add On G2211 Diagnoses Closed fracture of left proximal humerus S4A Neck muscle strain S16.1XXA
[2025-03-05 13:56] VITALS: BMI 33.2
--- OUTSIDE RECORDS SUMMARY | 2025-03-05 14:28 | XMS_ITS ---
Author Organization [facility] Address [address] [place] [address] Care Team Providers Care Underwriter Name Role Phone Erin Suarez MD Primary Care Provider Jonathan St Unavailable [phone] Allergies Allergen (clinical drug ingredient) Drug/Non Drug Allergy documented on EMR Reaction Allergy Type Onset Date Status sulfamethoxazole / trimethoprim Bactrim Unknown Drug Allergy Active Medications Medication SIG (Take, Route, Frequency, Duration) Notes Start Date End Date Status Meloxicam Active Vitamin B6 Active Vitamin D3 Active Acetaminophen Active Social History Tobacco Use: Social History Observation Description Date Details (start date - stop date) Former Smoker NA - NA Tobacco Use/Smoking Question Answer Notes Are you a: former smoker Additional Findings: Tobacco Non-User Current no n-smoker Alcohol Screen Question Answer Notes Did you have a drink containing alcohol in the p ast year? Yes Points 0 Interpretation Negative Tobacco use other than smoking: Question Answer Notes Are you an other tobacco user? No Vital Signs Height 4 ft 7 in in 09/25/2024 Weight 138 lbs 09/25/2024 BMI 32.07 kg/m2 09/25/2024 Encounters Encounter Location Date [facility] [address] [place] [phone] 09/25/2024 Jonathan Savage Plan Of Treatment Next Appt Details Provider Name:Jonathan Savage , 04/11/2025 01:00:00 PM, [address] [place] [address], [place], [address], Progress Notes * Alba BEACHisDOB: [birth year] (54 yo F)Acc No.[id number]:09/25/2024 Progress Notes Patient:?Siomara BEACH Provider:?Jonathan Savage DPM :1970???Age:54 Y???Sex:Female D ate:09/25/2024 Address:[address] [place] [address], [address] Pcp:Erin Suarez MD Subjective: * Chief Complaints: * ??? * ROS:?General/Constitutional:?Nausea?denies.?Vomiting?denies.?Hunger Thirst?denies.?Loss appetite?denies.?Chills?denies.?Fatigue?denies.?Fever?denies.?Night Sweats?denies.?Unexplained weight loss?denies.?Unexplained weight gain?admits.?HEENTM:?Dentures?denies.?Dizziness?admits.?Glasses/contacts?denies.?Retinopathy?de nies.?Blurred/double vision?denies.?TMJ?denies.?Discharge/drainage?denies.?Implants?denies.?Sore throat?denies.?Dental implants?denies.?Hard of hearing ?admits.?Difficulty chewing/swallowing/speaking?denies.?Nose bleeds?denies.?Sore mouth?denies.?Respiratory:?On Oxygen?denies.?Pneumonia/pleurisy?denies.?Bronchitis?denies.?Emphysema?denies.?C oughing?denies.?Cough blood?denies.?Shortness of breath?denies.?Wheezing?denies.?Cardiovascular:?Pacemaker?denies.?MVP?denies.?WPW?denies.?CHF?denies.?Heart attack?denies.?Septal defect?denies.?Rapid beat?denies.?Chest pain ?denies.?Atrial Fib.?denies.?Murmur/Palpitations?denies.?Gastrointestinal:?Hemorrhoids?denies.?Stomach/Abdominal pain?denies.?Dark blood stool?denies.?Irritable bowel ?denies.?Constipation?denies.?Diarrhea?denies.?Hematology:?Swelling?denies.?Clots?denies.?Varicose Veins?denies.?Bruising?denies.?Bleeding problem?denies.?Genitourinary:?Blood urine?denies.?Frequent/Painfu/urination/bladder control?denies.?Kidney stones?denies.?Infection (UTI)?denies.?Nephropathy?denies.?sex trans dis (STD)?denies.?Prostate?denies.?Musculoskeletal:?Hammertoes?denies.?Bunions?denies.?Back Pain?admits.?Muscle Cramps/ Resting?denies.?Muscle cramps / walking?denies.?Generalized aches and pains?denies.?Weakness?denies.?Integ.:?Sanchez?denies.?Scars?denies.?Corns/calluses?denies.?Ingrown nails?denies.?Painful nails?denies.?Open Sores?denies.?Rashes?denies.?Neurologic:?Difficulty sleeping?denies.?Brain disorder?denies.?Numbness?denies.?Balance trouble?admits.?Confusion?denies.?Fainting/blackouts?denies.?Tingling?denies.?Tr emors?denies.? * Medical History:?Arthritis, Back,Hip,and Knee pain, Chicken pox, Joint implants/screws. * Surgical History:?right knee 2001, LT knee 2018, LT hip 2018. * Family History:?Mother: isaac fernandez, diagnosed with Family history of arthritis, Diabetic - NIDDM, Unspecified cerebral artery occlusion with cerebral infarction.?Father: alive.? * Social History:?Tobacco Use:?Tobacco Use/Smoking?Are you a:?former smoker ?Additional Findings: Tobacco Non-User?Current non-smoker ?Tobacco use other than smoking?Are you an other tobacco user??No ???Drugs/Alcohol:?Drugs?Have you used drugs other than those for medical reasons in the past 12 months??No ?Alcohol Screen?Did you have a drink containing alcohol in the past year??Yes ?Points?0 ?Interpretation?Negative ???Miscellaneous:?Caffeine: no. ?Children: yes, 2. ?Exercise: no. ?Marital status: single. 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 * Medications:?Taking Meloxica m , Taking Vitamin D3 , Taking Vitamin B6 , Taking Acetaminophen * Allergies:?Bactrim. Objective: * Vitals:?Ht: 4 ft 7 in, Wt:13 8, BMI:32.07, Shoe size: 6, Ht-cm: 139.7 cm, Wt-k.6 kg. Assessment: Plan: * Treatment: * Images: * The named appointment provid er may or may not be the originator of this progress note, and it is not deemed complete until electronically signed by the appointment provider. Sign off status: Pending * Provider:?Jonathan Savage DPM Date:?2023 Generated for Adriana orona/Edmond/Agustina on:?03/05/2025 02:27 PM EDT
== END 2025-03-05 14:22 | disposition home or self-care (01) ==
LOC: HO.HOS 13:23
PROVIDERS: PCP Internal Medicine; Visit Provider Physician Assistant
DX: S42.202A Unspecified fracture of upper end of left humerus, initial encounter for closed fracture (principal); S16.1XXA Strain of muscle, fascia and tendon at neck level, initial encounter
CPT/HCPCS: 99213; G2211

== ENCOUNTER → 2025-03-05 13:25 | Outpatient (BNV) | payer OTHER, SELFPAY | PROVIDERS: Visit Provider Radiology Diagnostic Radiology | DX: M19.012 Primary osteoarthritis, left shoulder (principal) | CPT/HCPCS: 73030 ==

== ENCOUNTER 2025-05-24 08:50 | Outpatient (RCR) | payer OTHER, SELFPAY | END 2025-07-02 09:53 | disposition home or self-care (01) | LOC: HO.PT 08:50 | PROVIDERS: PCP Internal Medicine; Visit Provider Physician Assistant | DX: S42.202D Unspecified fracture of upper end of left humerus, subsequent encounter for fracture with routine healing (principal); S16.1XXD Strain of muscle, fascia and tendon at neck level, subsequent encounter | CPT/HCPCS: 97110; 97140; 97161; 97535 ==